=== PATIENT | female | born 1965 | race Caucasian/White ===

== ENCOUNTER → 2016-10-24 | Outpatient (CLI) | payer OTHER ==
[~2016-10-24] VITALS: Ht 175.3 cm; Wt 88.5 kg
[~2016-10-24] MED LIST: ENBREL50 MG/1 ML SQ; EXCEDRIN MIGRA1 EAC1 PO; HYDROCODONE BT1 EAC1 PO; HYDROCODONE-AP1 EAC6 PO; IBUPROFEN 200200 M1 PO; MOVANTIK12.5 MG PO; MS CONTIN15 MG PO; OXYCODONE HCL E10 MG PO; OXYCONTIN10 M1 PO; OXYCONTIN15 MG PO; PLAQUENIL200 MG PO; PREDNISONE 5 MG5 M1 PO; ZANAFLEX4 MG PO
--- NOTE | ~2016-10-24 | HPC ---
[facility] [place] [address] PAIN MANAGEMENT CONSULTATION Name: AMINAH HWANG Room #: REG DI Jeanette#: [id number] Admission: 10/24/16 Attend Phys: Altaf Lantigua DO Discharge: Date of : 63 Report #: [id number] THIS REPORT FOR: //name// CC: Adelso Lantigua The patient is a 51-year-old female typically treated for psoriatic arthritis, DJD, chronic pain syndrome requiring complex medication management. Last seen in the pain clinic 08/29/2016. The patient was continued on baseline medication, MS Contin 15 mg b.i.d. She was scheduled for foot surgery (left) the subsequent week. We continued her hydrocodone 5/325 b.i.d. for breakthrough pain. She returns to pain clinic today noting that her left foot surgery went well. They fused apparently 3 toes and may have done a tendon lengthening procedure as well. She is still nonweightbearing. She notes pain to 5/10 burning, aching sensation. She complains of right SI mediated pain which is chronic and left ankle pain secondary to surgery. She continued taking medication appropriately. PHYSICAL EXAMINATION: GENERAL: Reveals a 51-year-old female, BMI is 28.8 kilograms per meter squared. VITAL SIGNS: Show modest hypertension 139/95, pulse 107, respirations 17. NEUROLOGIC: Cranial nerves 2-12 are grossly intact. Speech is fluent. Alert and oriented to person, place and time, judged to be a reasonable historian. EXTREMITIES: Again, fiberglass cast below knee to the foot on the left side. Toes are pink and viable. She can move the toes with knee, but obviously ankle is immobilized. We reviewed the fact that opiate medications are being used to provide analgesia adequate to support activities of daily living, not attempting to achieve a specific pain score on the 0-10 Visual Analog Scale. The current opiate medications are providing sufficient analgesia to allow the patient to participate in activities of daily living. The patient is not exhibiting any aberrant behavior suggestive of drug diversion. The patient is not having any adverse reactions to medications. The patient is not suffering from daytime somnolence or mental acuity changes. The patient is managing opiate-induced constipation with appropriate zbzn-ruz-btedbjw agents and dietary considerations. The patient was counseled on concern for caution with operating a motor vehicle while using opiate medications. A physical exam was performed and the patient's functional status was evaluated. All patients with back pain were advised against the bed rest greater than 4 days and were advised to return to normal activities. Pain score assessment was noted and the treatment plan was reviewed with the patient. All current medications, both prescribed and OTC were reviewed and reconciled on the electronic medical record. Tobacco screening was accomplished and smoking cessation was advised when indicated. BMI was noted and diet/exercise modification was recommended for all patients following outside normal parameters. [address] [address] PAIN MANAGEMENT CONSULTATION Name: AMINAH HWANG Room #: REG DI Reid#: [id number] Admission: 10/24/16 Attend Phys: Altaf Lantigua DO Discharge: Date of : 63 Report #: [id number] I reviewed with the patient today their responsibilities to safeguard prescription medications, reviewed their responsibility to utilize medications only as prescribed by the physician. They are to seek and receive pain medications only from 1 physician group ( [facility]). They are to use 1 pharmacy and keep the clinic informed if they change pharmacies. Their responsibilities include making followup visits in a timely fashion and to avoid abrupt discontinuation of medication usage. Their responsibilities further include bringing their medications (bottles from the pharmacy with residual pills) to the visit for possible confirmation of pill counts and the patient understands it is their responsibility to submit to random drug screens to ensure both that the medications prescribed are present, and that no other controlled substances are present. All prescriptions provided today were generated electronically. ASSESSMENT: Chronic pain syndrome for psoriatic arthritis requiring complex medication management, stable on baseline medications. RECOMMENDATION: Continue tizanidine 4 mg t.i.d., MS Contin 15 mg b.i.d. and hydrocodone 5/325 one tablet up to 3-4 tablets a day (100 tablets for 30 days). I have taken the liberty of writing for 2 months of current medications. Her last urine drug screen on 12/31/2015 was positive for prescribed medications. We will likely get a urine drug screen next visit, should be approaching 1 year since the last UDS at that time. No aberrant behavior suggestive for drug diversion. The patient was discharged in good and stable condition. By: [id number] Altaf Lantigua DO /nt
[2016-10-24 13:30] VITALS: BP 139/95
== END ==
LOC: PAIN 06:49
DX: G89.4 Chronic pain syndrome (principal); L40.59 Other psoriatic arthropathy; I10 Essential (primary) hypertension

== ENCOUNTER → 2016-12-16 | Outpatient (CLI) | payer OTHER ==
[~2016-12-16] VITALS: Ht 175.3 cm; Wt 83.5 kg
[~2016-12-16] MED LIST changes: +HUMIRA40 MG/0.1 SQ
--- NOTE | ~2016-12-16 | HPC ---
[facility] [address] [place] [address] PAIN MANAGEMENT CONSULTATION Name: AMINAH HWANG Room #: REG DI Reid#: [id number] Admission: 12/16/16 Attend Phys: Altaf Lantigua DO Discharge: Date of : 63 Report #: [id number] THIS REPORT FOR: //name// CC: Adelso Lantigua The patient is a pleasant 51-year-old female being treated for psoriatic arthritis, DJD affecting hands, knees and ankles, chronic pain syndrome requiring complex medication management. Last seen in the pain clinic 10/24/2016. She had surgery on her left ankle in August. Returns to pain clinic today. She is still only marginal weightbearing (25%) and using a scooter type rolling device to bear most of weight of her left knee. She notes pain medications are helpful generally keeping pain around to 5 on a 0-10 visual analog scale. We reviewed the fact that opiate medications are being used to provide analgesia adequate to support activities of daily living, not attempting to achieve a specific pain score on the 0-10 Visual Analog Scale. The current opiate medications are providing sufficient analgesia to allow the patient to participate in activities of daily living. The patient is not exhibiting any aberrant behavior suggestive of drug diversion. The patient is not having any adverse reactions to medications. The patient is not suffering from daytime somnolence or mental acuity changes. The patient is managing opiate-induced constipation with appropriate nisb-zbn-cqfepnp agents and dietary considerations. The patient was counseled on concern for caution with operating a motor vehicle while using opiate medications. A physical exam was performed and the patient's functional status was evaluated. All patients with back pain were advised against the bed rest greater than 4 days and were advised to return to normal activities. Pain score assessment was noted and the treatment plan was reviewed with the patient. All current medications, both prescribed and OTC were reviewed and reconciled on the electronic medical record. Tobacco screening was accomplished and smoking cessation was advised when indicated. BMI was noted and diet/exercise modification was recommended for all patients following outside normal parameters. I reviewed with the patient today their responsibilities to safeguard prescription medications, reviewed their responsibility to utilize medications only as prescribed by the physician. They are to seek and receive pain medications only from 1 physician group ( [facility]). They are to use 1 pharmacy and keep the clinic informed if they change pharmacies. Their responsibilities include making followup visits in a timely fashion and to avoid abrupt discontinuation of medication usage. Their responsibilities further include bringing their medications (bottles from the pharmacy with residual pills) to the visit for possible confirmation of pill counts and the patient understands it is their responsibility to submit to random drug screens to [address] [address] PAIN MANAGEMENT CONSULTATION Name: AMINAH HWANG Room #: REG DI Reid#: [id number] Admission: 12/16/16 Attend Phys: Altaf Lantigua DO Discharge: Date of : 63 Report #: [id number] ensure both that the medications prescribed are present, and that no other controlled substances are present. All prescriptions provided today were generated electronically. PHYSICAL EXAMINATION: Shows a 51-year-old female, BMI is 27.2 kilograms per meter squared. Still has a walking boot on the left lower extremity and again using the scooter to limit weightbearing. Blood pressure is elevated today 162/101, pulse 81, respirations 16. Cranial nerves 2-12 are grossly intact. Pupils equal, reactive to light and accommodation. Extraocular muscles are intact. She is alert and oriented to person, place and time, judged to be a reasonable historian. Significant arthritic changes noted in both hands. ASSESSMENT: Psoriatic arthritis affecting hands, knees and feet, degenerative joint disease, chronic pain syndrome requiring complex medication management. Last urine drug screen 12/31/2015, positive for prescribed medications. RECOMMENDATION: Continue baseline medications unchanged, MS Contin 15 mg b.i.d., hydrocodone 5/325 one tablet 3-4 times a day, limit 100 tablets for 30 days, tizanidine 4 mg t.i.d. for spasm. I have taken the liberty of writing for 2 months of current medication. Follow up at that time. We will get a urine drug screen at next visit. Again, no aberrant behavior suggestive for drug diversion, simply complying with our opiate consent to treat contract, it will have been greater than a year at next visit since last UDS. By: [id number] Altaf Lantigua DO /nt
[2016-12-16 08:55] VITALS: BP 162/101
== END ==
LOC: PAIN 06:08
DX: L40.59 Other psoriatic arthropathy (principal); M19.072 Primary osteoarthritis, left ankle and foot; M19.071 Primary osteoarthritis, right ankle and foot; M17.0 Bilateral primary osteoarthritis of knee; M19.042 Primary osteoarthritis, left hand; M19.041 Primary osteoarthritis, right hand; G89.29 Other chronic pain

== ENCOUNTER → 2017-02-10 | Outpatient (CLI) | payer OTHER ==
[~2017-02-10] VITALS: Ht 175.3 cm; Wt 85.5 kg
[~2017-02-10] MED LIST changes: +LEFLUNOMIDE20 MG PO
--- NOTE | ~2017-02-10 | HPC ---
[facility] [address] [place] [address] PAIN MANAGEMENT CONSULTATION Name: AMINAH HWANG Room #: REG DI Jeanette#: [id number] Admission: 02/10/17 Attend Phys: Sal Silverman MD Discharge: Date of : 63 Report #: [id number] THIS REPORT FOR: //name// CC: Sal Tran DO DATE OF SERVICE: 02/10/2017 CHIEF COMPLAINT: Right SI joint pain, rib pain and ankle fusion pain. FOLLOWUP HISTORY: The patient is a 51-year-old female who has been followed in the pain clinic because of psoriatic arthritis, DJD and chronic pain requiring complex medication management. The patient has returned to the pain clinic for evaluation today. She states that she is going on vacation. She is walking and weightbearing on her foot. She states that her pain is a 5/10. She would like to have her medications renewed. PHYSICAL EXAMINATION: Blood pressure 154/93, pulse , respiratory rate 16, room air saturation 97%, height 5 feet 9 inches, weight is pounds, and BMI is 27.8. The patient has pain and discomfort involving the ankle and foot, which was treated in August 2016, with surgery. She also has some pain and discomfort affecting her hands, knees, and ankles. There are changes in her upper extremities and hands consistent with arthritis. RECOMMENDATIONS: We discussed treatment options with the patient. Risks and benefits of opioid therapy were again discussed. The patient will provide a sample for study. A buccal drug screen was performed. A script for MS Contin 10 mg 1 p.o. b.i.d., total of 60 tablets and hydrocodone 5/325, 100 tablets were written. The patient will follow up in the near future as needed. She will call us if she has any problems with her medications. We would like to thank you for letting us participate in her care. We hope she continues to improve. By: [id number] Sal Silverman MD /nt
[2017-02-10 09:17] VITALS: BP 154/93
== END ==
LOC: PAIN 07:27
DX: M53.3 Sacrococcygeal disorders, not elsewhere classified (principal); R07.81 Pleurodynia; M25.572 Pain in left ankle and joints of left foot; Z88.0 Allergy status to penicillin; Z88.1 Allergy status to other antibiotic agents; Z79.899 Other long term (current) drug therapy

== ENCOUNTER → 2017-03-16 | Outpatient (CLI) | payer OTHER ==
[~2017-03-16] VITALS: Ht 175.3 cm; Wt 87.6 kg
--- NOTE | ~2017-03-16 | HPC ---
[facility] [address] [place] [address] PAIN MANAGEMENT CONSULTATION Name: AMINAH HWANG Room #: REG DI Reid#: [id number] Admission: 03/16/17 Attend Phys: Altaf Lantigua DO Discharge: Date of : 63 Report #: [id number] THIS REPORT FOR: //name// CC: Adelso Lantigua DATE OF SERVICE: 03/16/2017 SUBJECTIVE: The patient is a very pleasant 51-year-old female with significant psoriatic arthritis, degenerative joint disease affecting hands, knees and ankles; chronic pain requiring complex medication management. Typically treated by myself, maintained with MS Contin 15 mg b.i.d., hydrocodone 5/325 one tablet 3-4 times a day, limit 100 tablets for 30 days. The patient is an opiate consent to treat contract patient. She had had left ankle fusion back in August and spent a long time with partial weightbearing. She was seen by Dr. Drake Silverman at last visit. Per my request, he did get a buccal swab at that time. Buccal swab was positive for prescribed medication including morphine and hydrocodone and no others. She returns to pain clinic today appearing her usual pleasant self. A 51-year-old female, BMI is 28.5 kilograms per meter squared. Today, she is fully weightbearing on that left ankle, fusion has taken, she has very little range of motion here. Unfortunately, with gait changes she has significant pain in that right low back. She does have bands from physical therapy at home to do abduction and core strengthening; she feels that this does exacerbate that right low back pain. She has point tenderness over the SI joint. She has had SI joint injections in the past with some efficacy. Rates her pain as 6 on the Visual Analog Scale. Again, primarily right low back with some pain in the left foot, right ribs and hip. Describes sharp, aching pain exacerbated with standing and walking. We reviewed the fact that opiate medications are being used to provide analgesia adequate to support activities of daily living, not attempting to achieve a specific pain score on the 0-10 Visual Analog Scale. The current opiate medications are providing sufficient analgesia to allow the patient to participate in activities of daily living. The patient is not exhibiting any aberrant behavior suggestive of drug diversion. The patient is not having any adverse reactions to medications. The patient is not suffering from daytime somnolence or mental acuity changes. The patient is managing opiate-induced constipation with appropriate oayt-boq-qklftme agents and dietary considerations. The patient was counseled on concern for caution with operating a motor vehicle while using opiate medications. A physical exam was performed and the patient's functional status was evaluated. [address] [address] PAIN MANAGEMENT CONSULTATION Name: AMINAH HWANG Room #: REG DI Reid#: [id number] Admission: 03/16/17 Attend Phys: Altaf Lantigua DO Discharge: Date of : 63 Report #: [id number] All patients with back pain were advised against the bed rest greater than 4 days and were advised to return to normal activities. Pain score assessment was noted and the treatment plan was reviewed with the patient. All current medications, both prescribed and OTC were reviewed and reconciled on the electronic medical record. Tobacco screening was accomplished and smoking cessation was advised when indicated. BMI was noted and diet/exercise modification was recommended for all patients following outside normal parameters. I reviewed with the patient today their responsibilities to safeguard prescription medications, reviewed their responsibility to utilize medications only as prescribed by the physician. They are to seek and receive pain medications only from 1 physician group ( [facility]). They are to use 1 pharmacy and keep the clinic informed if they change pharmacies. Their responsibilities include making followup visits in a timely fashion and to avoid abrupt discontinuation of medication usage. Their responsibilities further include bringing their medications (bottles from the pharmacy with residual pills) to the visit for possible confirmation of pill counts and the patient understands it is their responsibility to submit to random drug screens to ensure both that the medications prescribed are present, and that no other controlled substances are present. All prescriptions provided today were generated electronically. PHYSICAL EXAMINATION: Shows a 51-year-old female, BMI is 28.5 kilograms per meter squared. Obvious arthritic changes in her hands. Blood pressure 146/96, pulse 96, respirations 14. Rises from chair using armrests, antalgic gait. Left ankle fused. Little kyphoscoliosis, diffuse tenderness across the low back. ASSESSMENT: Psoriatic arthritis affecting knees, ankles and hands; chronic pain syndrome requiring complex medication management, stable on baseline medication. Buccal swab last visit positive for prescribed medication. RECOMMENDATIONS: Continue MS Contin 15 mg b.i.d., hydrocodone 5/325, limit 100 tablets for 30 days. I have taken the liberty of writing for 2 months of current medication. Follow up at that time, earlier if needed. Incidentally will continue tizanidine 4 mg t.i.d. as needed for spasm. <ELECTRONICALLY SIGNED> By: Altaf Lantigua DO 03/17/17 1225 1158 16 Altaf Lantigua DO /nt
[2017-03-16 10:22] VITALS: BP 146/96
== END ==
LOC: PAIN 06:54
DX: M54.16 Radiculopathy, lumbar region (principal)

== ENCOUNTER → 2017-05-08 | Outpatient (CLI) | payer OTHER ==
[~2017-05-08] VITALS: Ht 175.3 cm; Wt 85.8 kg
--- NOTE | ~2017-05-08 | HPC ---
[facility] [address] [place] [address] PAIN MANAGEMENT CONSULTATION Name: AMINAH HWANG Room #: REG DI Camargo.#: [id number] Admission: 05/08/17 Attend Phys: Altaf Lantigua, DO Discharge: Date of : 63 Report #: [id number] THIS REPORT FOR: //name// CC: Adelso Lantigua The patient is a very pleasant 51-year-old female, well known to pain clinic, typically treated for psoriatic arthritis, DJD affecting hands, knees, and ankles, requiring high risk complex medication management. She has been typically treated with MS Contin 15 mg b.i.d., hydrocodone 5/325 one tablet 3-4 times a day, limit 100 tablets for 30 days. Last buccal drug swab 02/10/2017, was positive for prescribed medications. She returns to pain clinic today noting medications are providing sufficient analgesia to participate in activities of daily living. Today, she notes pain is primarily hips with some rib pain. She is status post left ankle fusion in August, symptoms seemed to be getting better. Rates pain a 6 on VAS. PHYSICAL EXAMINATION: Shows a pleasant 51-year-old female, BMI is 27.9 kg/m2. Vital signs show hypertension, blood pressure 164/115, pulse 89, and respirations 16. Reviewing her chart, blood pressure has typically been elevated, but more in the 150/90 range. We suggest she follow up with a major general physician regarding current hypertension, she does not take any antihypertensive medications. She does take ibuprofen; however, 600 mg up to 3 times a day, which can be exacerbating blood pressure issues. Also uses disease modifying agents including leflunomide, Humira, and prednisone. Does have significant arthritic changes with deformities in her hands and knees. Rises from chair using armrest. Gait is modestly antalgic. Lumbar flexion is limited. We reviewed the fact that opiate medications are being used to provide analgesia adequate to support activities of daily living, not attempting to achieve a specific pain score on the 0-10 Visual Analog Scale. The current opiate medications are providing sufficient analgesia to allow the patient to participate in activities of daily living. The patient is not exhibiting any aberrant behavior suggestive of drug diversion. The patient is not having any adverse reactions to medications. The patient is not suffering from daytime somnolence or mental acuity changes. The patient is managing opiate-induced constipation with appropriate fxsm-cms-bxhzchk agents and dietary considerations. The patient was counseled on concern for caution with operating a motor vehicle while using opiate medications. A physical exam was performed and the patient's functional status was evaluated. All patients with back pain were advised against the bed rest greater than 4 days and were advised to return to normal activities[place] [address] PAIN MANAGEMENT CONSULTATION Name: AMINAH HWANG Room #: REG DI Reid#: [id number] Admission: 05/08/17 Attend Phys: Altaf Lantigua DO Discharge: Date of : 63 Report #: [id number] noted and the treatment plan was reviewed with the patient. All current medications, both prescribed and OTC were reviewed and reconciled on the electronic medical record. Tobacco screening was accomplished and smoking cessation was advised when indicated. BMI was noted and diet/exercise modification was recommended for all patients following outside normal parameters. I reviewed with the patient today their responsibilities to safeguard prescription medications, reviewed their responsibility to utilize medications only as prescribed by the physician. They are to seek and receive pain medications only from 1 physician group ( [facility]). They are to use 1 pharmacy and keep the clinic informed if they change pharmacies. Their responsibilities include making followup visits in a timely fashion and to avoid abrupt discontinuation of medication usage. Their responsibilities further include bringing their medications (bottles from the pharmacy with residual pills) to the visit for possible confirmation of pill counts and the patient understands it is their responsibility to submit to random drug screens to ensure both that the medications prescribed are present, and that no other controlled substances are present. All prescriptions provided today were generated electronically. ASSESSMENT: Psoriatic arthritis affecting hands, hips, knees, ankles, requiring high risk complex medication management, stable on baseline medication. RECOMMENDATION: Continue MS Contin 15 mg b.i.d., hydrocodone 5/325 one tablet 3-4 times a day, limit 100 tablets for 30 days. I have taken the liberty of writing for 2 months of current medication. Continue tizanidine 4 mg t.i.d. Suggest she follow up with her major general physician regarding hypertension and perhaps hold off on ibuprofen use presently. <ELECTRONICALLY SIGNED> By: Altaf Lantigua DO 05/10/17 0802 1026 1226 Altaf Lantigua DO /nt
[2017-05-08 09:49] VITALS: BP 164/115
== END ==
LOC: PAIN 06:59
DX: L40.59 Other psoriatic arthropathy (principal)

== ENCOUNTER → 2017-07-06 | Outpatient (CLI) | payer OTHER ==
[~2017-07-06] VITALS: Ht 175.3 cm; Wt 84.9 kg
--- NOTE | ~2017-07-06 | HPC ---
[facility] [address] [place] [address] PAIN MANAGEMENT CONSULTATION Name: AMINAH HWANG Room #: REG DI Reid#: [id number] Admission: 07/06/17 Attend Phys: Altaf Lantigua DO Discharge: Date of : 63 Report #: [id number] THIS REPORT FOR: //name// CC: Adelso Lantigua The patient is a 51-year-old female typically treated for psoriatic arthritis affecting hands, ankles and knees. She requires high risk complex medication management. Last seen in the pain clinic 05/08/2017, continued on hydrocodone 5/325 one tablet 3 to 4 times a day, MS Contin 15 mg b.i.d. and tizanidine 4 mg for spasm. Last urine drug screen on 02/10/2017 was positive for prescribed medications. The patient was having a little hypertension. Last visit, we told her to stop the anti-inflammatory medications (ibuprofen) and follow up with her GP. She returns to pain clinic today noting medications are generally providing sufficient analgesia to participate in activities of daily living, rates her pain 6 on a VAS. Not having problems from daytime somnolence, mental acuity changes or constipation. Pain is primarily low back, left foot, right ribs and right hip. Pain is exacerbated with standing, walking and some relief with medication. We reviewed the fact that opiate medications are being used to provide analgesia adequate to support activities of daily living, not attempting to achieve a specific pain score on the 0-10 Visual Analog Scale. The current opiate medications are providing sufficient analgesia to allow the patient to participate in activities of daily living. The patient is not exhibiting any aberrant behavior suggestive of drug diversion. The patient is not having any adverse reactions to medications. The patient is not suffering from daytime somnolence or mental acuity changes. The patient is managing opiate-induced constipation with appropriate yxbx-ktd-yxfcptb agents and dietary considerations. The patient was counseled on concern for caution with operating a motor vehicle while using opiate medications. A physical exam was performed and the patient's functional status was evaluated. All patients with back pain were advised against the bed rest greater than 4 days and were advised to return to normal activities. Pain score assessment was noted and the treatment plan was reviewed with the patient. All current medications, both prescribed and OTC were reviewed and reconciled on the electronic medical record. Tobacco screening was accomplished and smoking cessation was advised when indicated. BMI was noted and diet/exercise modification was recommended for all patients following outside normal parameters. I reviewed with the patient today their responsibilities to safeguard prescription medications, reviewed their responsibility to utilize medications only as prescribed by the physician. They are to seek and receive pain [address] [address] PAIN MANAGEMENT CONSULTATION Name: AMINAH HWANG Room #: REG DI Reid#: [id number] Admission: 07/06/17 Attend Phys: Altaf Lantigua DO Discharge: Date of : 63 Report #: [id number] medications only from 1 physician group ( [facility]). They are to use 1 pharmacy and keep the clinic informed if they change pharmacies. Their responsibilities include making followup visits in a timely fashion and to avoid abrupt discontinuation of medication usage. Their responsibilities further include bringing their medications (bottles from the pharmacy with residual pills) to the visit for possible confirmation of pill counts and the patient understands it is their responsibility to submit to random drug screens to ensure both that the medications prescribed are present, and that no other controlled substances are present. All prescriptions provided today were generated electronically. PHYSICAL EXAMINATION: Shows pleasant 51-year-old female, BMI is 27.6 kilograms per meter squared. Vital signs are stable, blood pressure 147/88, pulse 70 and respiration 16 today. Does have residual of surgery of both hands with joint replacements, psoriatic arthritis in back and legs and antalgic gait. Medication list was reconciled includes leflunomide and Humira. She is using low dose ibuprofen presently and prednisone 5 mg. ASSESSMENT: Chronic pain syndrome secondary to psoriatic arthritis affecting hands, knees and ankles requiring high risk complex medication management, stable on baseline medication. RECOMMENDATION: Renew MS Contin 15 mg b.i.d., hydrocodone 5/325 1 or 2 tablets for 30 days, tizanidine 4 mg t.i.d. I have taken the liberty of writing for 2 months of current medication. Follow up at that time or earlier if needed. <ELECTRONICALLY SIGNED> By: Altaf Lantigua DO 07/07/17 0943 [id number] [id number] Altaf Lantigua DO /nt
[2017-07-06 10:48] VITALS: BP 147/88
== END ==
LOC: PAIN 06:17
DX: G89.4 Chronic pain syndrome (principal); L40.52 Psoriatic arthritis mutilans; Z79.899 Other long term (current) drug therapy

== ENCOUNTER → 2017-09-04 | Outpatient (CLI) | payer OTHER ==
[~2017-09-04] VITALS: Ht 175.3 cm; Wt 86.2 kg
[~2017-09-04] MED LIST changes: +ASPIR 8181 MG PO; +CARDIZEM CD120 MG PO; +HUMIRA40 MG/0.1 SUBQ
--- NOTE | ~2017-09-04 | HPC ---
[facility] [place] [address] PAIN MANAGEMENT CONSULTATION Name: AMINAH HWANG Room #: REG [facility]aze Reid#: [id number] Admission: 09/04/17 Attend Phys: Altaf Lantigua DO Discharge: Date of : 63 Report #: [id number] THIS REPORT FOR: //name// CC: Adelso Lantigua DATE OF SERVICE: 09/04/2017 The patient is a very pleasant 51-year-old female typically treated for psoriatic arthritis affecting hands, ankles and knees requiring high risk complex medication management. Last seen in the pain clinic 07/06/2017, continued on baseline medications including MS Contin 15 mg b.i.d., hydrocodone 5/325 one to two tablets 3 times a day, limit 100 tablets for 30 days and tizanidine 4 mg t.i.d. for spasm. Returns to pain clinic today noting medications are generally helping with baseline pain. Rates her pain is 6 on VAS. Specifically, notes pain impact score a 53/70 without medications, 22/70 with medications. Subjective pain score 6 on VAS. History of psoriatic arthritis "everywhere" primarily affecting hands, knees and ankles. BMI is 28 kilograms per meter squared. Vital signs show modest hypertension 167/104, pulse 76, respirations are 14, oxygen saturation 90%. She has not fallen in the last 3 months. She does not require mobility assistance device though she did use a foot wheelie postop her left ankle surgery. Her last opiate consent to treat contract was signed several years ago. We reviewed the contract today, was signed 09/04/2017. Opiate risk assessment tool shows the patient at low risk category. PHYSICAL EXAMINATION: Again shows well-healed surgical scars in her hands compatible with multiple orthopedic surgeries for psoriatic arthritic joints. Rises from chair using armrest, modestly antalgic gait. Alert and oriented to person, place and time, judged to be a reasonable historian. Lumbar flexion is limited. Gait is modestly antalgic. We reviewed the fact that opiate medications are being used to provide analgesia adequate to support activities of daily living, not attempting to achieve a specific pain score on the 0-10 Visual Analog Scale. The current opiate medications are providing sufficient analgesia to allow the patient to participate in activities of daily living. The patient is not exhibiting any aberrant behavior suggestive of drug diversion. The patient is not having any adverse reactions to medications. The patient is not suffering from daytime somnolence or mental acuity changes. The patient is managing opiate-induced constipation with appropriate tlzs-esy-tpbhkmq agents and dietary considerations. The patient was counseled on concern for caution with operating a motor vehicle while using opiate medications. A physical exam was performed and the patient's functional status was evaluated. [address] [address] PAIN MANAGEMENT CONSULTATION Name: AMINAH HWANG Room #: REG DI Reid#: [id number] Admission: 09/04/17 Attend Phys: Altaf Lantigua DO Discharge: Date of : 63 Report #: [id number] All patients with back pain were advised against the bed rest greater than 4 days and were advised to return to normal activities. Pain score assessment was noted and the treatment plan was reviewed with the patient. All current medications, both prescribed and OTC were reviewed and reconciled on the electronic medical record. Tobacco screening was accomplished and smoking cessation was advised when indicated. BMI was noted and diet/exercise modification was recommended for all patients following outside normal parameters. I reviewed with the patient today their responsibilities to safeguard prescription medications, reviewed their responsibility to utilize medications only as prescribed by the physician. They are to seek and receive pain medications only from 1 physician group ( [facility]). They are to use 1 pharmacy and keep the clinic informed if they change pharmacies. Their responsibilities include making followup visits in a timely fashion and to avoid abrupt discontinuation of medication usage. Their responsibilities further include bringing their medications (bottles from the pharmacy with residual pills) to the visit for possible confirmation of pill counts and the patient understands it is their responsibility to submit to random drug screens to ensure both that the medications prescribed are present, and that no other controlled substances are present. All prescriptions provided today were generated electronically. Long discussion with the patient today about CBD oil. The patient would like to try and start using less of her hydrocodone p.r.n. I talked about risks and benefits of CBD oil. I talked about the fact that it is noncontrolled substance; however, there are endogenous CBD receptors in the body. Pointed out that using CBD oil should still test negative for THC. Using CBD oil does not condone use of marijuana/THC products. ASSESSMENT: Psoriatic arthritis affecting multiple joints, primarily hands, ankles and knees, chronic pain syndrome requiring high risk complex medication management. RECOMMENDATION: Long discussion with the patient today about therapeutic options. The patient was seen from 14:05-14:30, greater than 50% of this 25+ minute visit was spent reviewing therapeutic options and counseling the patient. We elected to continue current medication including MS Contin 15 mg b.i.d., hydrocodone 5/325, limit 100 tablets for 30 days, tizanidine 4 mg t.i.d. We did renew the opiate consent to treat contract today. I did enable the patient to trial a CBD products. She preferred not to buy them over online and stated she preferred to shop at store apparently in [place], [place] that is selling CBD products. Follow up in 2 months. I told the patient will likely get a buccal drug swab at that time. It should be negative for THC, positive for hydrocodone and morphine. [facility] [address] [place] [address] PAIN MANAGEMENT CONSULTATION Name: AMINAH HWANG Room #: REG [facility] Raman.#: [id number] Admission: 09/04/17 Attend Phys: Altaf Lantigua DO Discharge: Date of : 63 Report #: [id number] The patient was discharged in good and stable condition after prolonged visit. <ELECTRONICALLY SIGNED> By: Altaf Lantigua DO 09/06/17 0724 1544 1919 Altaf Lantigua DO /nt
[2017-09-04 13:47] VITALS: BP 167/104
== END ==
LOC: PAIN 07:39
DX: L40.50 Arthropathic psoriasis, unspecified (principal); Z79.899 Other long term (current) drug therapy

== ENCOUNTER → 2017-10-30 | Outpatient (CLI) | payer OTHER ==
[~2017-10-30] VITALS: Ht 175.3 cm; Wt 86.6 kg
[~2017-10-30] MED LIST changes: -ASPIR 8181 MG PO; -CARDIZEM CD120 MG PO
--- NOTE | ~2017-10-30 | HPC ---
[facility] [place] [address] [place] [address] [place] [address] PAIN MANAGEMENT CONSULTATION Name: AMINAH HWANG Room #: REG DI Reid#: [id number] Admission: 10/30/17 Attend Phys: Altaf Lantigua DO Discharge: Date of : 63 Report #: [id number] THIS REPORT FOR: //name// CC: Adelso Lantigua DATE OF SERVICE: 10/30/2017 The patient is a very pleasant 52-year-old female, long treated for psoriatic arthritis affecting hands, ankles, and knees. Last seen in the Pain Clinic on 07/04/2018, continued on MS Contin 15 mg b.i.d.; hydrocodone 5/325 one tablet 3-4 times a day, limit her tablet to 30 days; tizanidine 4 mg t.i.d. for spasm. She returns to the Pain Clinic today noting medications are generally helpful to participate in activities of daily living. She is status post carpometacarpal joint replacements on all 5 right hand knuckles, status post bilateral total knee arthroplasties. She has had left ankle fusion. She notes that the total joint arthroplasties have been efficacious. The left ankle fusion continues to be problematic. Ongoing axial pain, hips, left ankle and back. We reviewed the fact that opiate medications are being used to provide analgesia adequate to support activities of daily living, not attempting to achieve a specific pain score on the 0-10 Visual Analog Scale. The current opiate medications are providing sufficient analgesia to allow the patient to participate in activities of daily living. The patient is not exhibiting any aberrant behavior suggestive of drug diversion. The patient is not having any adverse reactions to medications. The patient is not suffering from daytime somnolence or mental acuity changes. The patient is managing opiate-induced constipation with appropriate vetu-iwx-jgzcnfh agents and dietary considerations. The patient was counseled on concern for caution with operating a motor vehicle while using opiate medications. A physical exam was performed and the patient's functional status was evaluated. All patients with back pain were advised against the bed rest greater than 4 days and were advised to return to normal activities. Pain score assessment was noted and the treatment plan was reviewed with the patient. All current medications, both prescribed and OTC were reviewed and reconciled on the electronic medical record. Tobacco screening was accomplished and smoking cessation was advised when indicated. BMI was noted and diet/exercise modification was recommended for all patients following outside normal parameters. I reviewed with the patient today their responsibilities to safeguard prescription medications, reviewed their responsibility to utilize medications only as prescribed by the physician. They are to seek and receive pain medications only from 1 physician group ( [facility]). They are to use [address] [place] [address] PAIN MANAGEMENT CONSULTATION Name: AMINAH HWANG Room #: REG DI Reid#: [id number] Admission: 10/30/17 Attend Phys: Altaf Lantigua DO Discharge: Date of : 63 Report #: [id number] pharmacy and keep the clinic informed if they change pharmacies. Their responsibilities include making followup visits in a timely fashion and to avoid abrupt discontinuation of medication usage. Their responsibilities further include bringing their medications (bottles from the pharmacy with residual pills) to the visit for possible confirmation of pill counts and the patient understands it is their responsibility to submit to random drug screens to ensure both that the medications prescribed are present, and that no other controlled substances are present. All prescriptions provided today were generated electronically. At last visit, we talked about CBD oil. The patient has not had a chance to trial this. She is still very desirous about trialing CBD oil. In total, we will postpone a buccal drug swab today. I would like to get a buccal drug swab when I see her back in 2 months if she is using CBD oil. Somewhat as an internal test, it should be positive for morphine and hydrocodone. It should be negative for delta 9 THC. We will check the specificity to see if there is any overlap with CBD oils. Again, on physical exam, she is alert and oriented to person, place and time, judged to be a reasonable historian. Cervical range of motion is modestly limited. Right hand has some limitation in range of motion, obvious sequelae status post right carpometacarpal joint replacements. Rises from chair using armrest, modestly antalgic gait, diffuse tenderness across the low back. Alert and oriented to person, place and time, judged to be a reasonable historian. Vital signs are stable as noted in the EMR. Subjective pain score is 6 on a VAS. Does not use tobacco products, has not fallen in the last 3 months. Discharged in good and stable condition. Follow up in 2 months. Again, buccal drug swab at that time. <ELECTRONICALLY SIGNED> By: Altaf Lantigua DO 11/01/17 0753 1501 Altaf Lantigua DO /nt
[2017-10-30 14:28] VITALS: BP 165/96
== END ==
LOC: PAIN 06:21
DX: L40.59 Other psoriatic arthropathy (principal); Z96.653 Presence of artificial knee joint, bilateral; M25.472 Effusion, left ankle

== ENCOUNTER → 2018-01-01 | Outpatient (CLI) | payer OTHER ==
[~2018-01-01] VITALS: Ht 175.3 cm; Wt 87.7 kg
--- NOTE | ~2018-01-01 | HPC ---
[facility] [place] [address] PAIN MANAGEMENT CONSULTATION Name: AMINAH HWANG Room #: REG DI Reid#: [id number] Admission: 01/01/18 Attend Phys: Altaf Lantigua DO Discharge: Date of : 63 Report #: [id number] THIS REPORT FOR: //name// CC: Adelso Lantigua DATE OF SERVICE: 01/01/2018 The patient is a delightful 52-year-old female, long treated for symptomatic psoriatic arthritis affecting her hands, ankles and knees, axial back pain requiring complex medication management. Last seen in pain clinic 10/30/2017. We continued the patient on MS Contin 15 mg q. 8 hours and hydrocodone 5/325, limit #100 tablets for 30 days, averaging about 60 mg morphine equivalents a day. She uses tizanidine as needed for spasm. She is status post multiple metacarpocarpal arthroplasties, status post bilateral total knee arthroplasties and the left ankle fusion. Last visit, we talked about CBD oil as a possible therapeutic option to help with pain. Today, she tells me that she did start using CBD oil from [facility] in [place]. She has used it for about a month. She notes no euphoria nor dysphoria. She does feel, however, that she has had a little better pain control and in fact, has used less of her hydrocodone. Today, she tells me her pain score is 5 on a VAS, primarily right low back and hips. No problems with daytime somnolence, mental acuity changes or constipation. Pain is exacerbated with standing, walking and weather changes. Overall, feels that the medications are helpful. She feels the CBD oil is helpful as well. Today at my request since our prior discussion, I had encouraged her to go ahead and try the CBD oil. We elected to get a buccal drug swab today. I believe the patient is not using any marijuana-containing products, at least knowingly. Ostensibly, the buccal swab should be negative for THC. Certainly, the CBD oil sold in [place] should contain no THC. We elected to continue the scheduled 2 narcotic unchanged. We reviewed the fact that opiate medications are being used to provide analgesia adequate to support activities of daily living, not attempting to achieve a specific pain score on the 0-10 Visual Analog Scale. The current opiate medications are providing sufficient analgesia to allow the patient to participate in activities of daily living. The patient is not exhibiting any aberrant behavior suggestive of drug diversion. The patient is not having any [address] [address] PAIN MANAGEMENT CONSULTATION Name: AMINAH HWANG Room #: REG [facility]..#: [id number] Admission: 01/01/18 Attend Phys: Altaf Lantigua DO Discharge: Date of : 63 Report #: [id number] adverse reactions to medications. The patient is not suffering from daytime somnolence or mental acuity changes. The patient is managing opiate-induced constipation with appropriate qgns-rch-fznkgvr agents and dietary considerations. The patient was counseled on concern for caution with operating a motor vehicle while using opiate medications. A physical exam was performed and the patient's functional status was evaluated. All patients with back pain were advised against the bed rest greater than 4 days and were advised to return to normal activities. Pain score assessment was noted and the treatment plan was reviewed with the patient. All current medications, both prescribed and OTC were reviewed and reconciled on the electronic medical record. Tobacco screening was accomplished and smoking cessation was advised when indicated. BMI was noted and diet/exercise modification was recommended for all patients following outside normal parameters. I reviewed with the patient today their responsibilities to safeguard prescription medications, reviewed their responsibility to utilize medications only as prescribed by the physician. They are to seek and receive pain medications only from 1 physician group ( [facility]). They are to use 1 pharmacy and keep the clinic informed if they change pharmacies. Their responsibilities include making followup visits in a timely fashion and to avoid abrupt discontinuation of medication usage. Their responsibilities further include bringing their medications (bottles from the pharmacy with residual pills) to the visit for possible confirmation of pill counts and the patient understands it is their responsibility to submit to random drug screens to ensure both that the medications prescribed are present, and that no other controlled substances are present. All prescriptions provided today were generated electronically. I will ask the patient to follow up with Dr. Drake Silverman, she has seen him in my absence and I think he is a good compassionate physician to continue to manage her modest opiate requirement. <ELECTRONICALLY SIGNED> By: Altaf Lantigua DO 01/03/18 0800 [id number] 0153 Altaf Lantigua DO /nt
[2018-01-01 13:33] VITALS: BP 159/96
== END ==
LOC: PAIN 07:38
DX: M54.5 Low back pain (principal); F11.90 Opioid use, unspecified, uncomplicated; Z79.899 Other long term (current) drug therapy

== ENCOUNTER → 2018-04-30 | Outpatient (CLI) | payer OTHER ==
[~2018-04-30] VITALS: Ht 175.3 cm; Wt 86.5 kg
[~2018-04-30] MED LIST changes: +ASPIR 8181 MG PO; +CARDIZEM CD120 MG PO
[2018-04-30 10:53] VITALS: BP 156/97
== END ==
LOC: PAIN 07:13
DX: M54.5 Low back pain (principal); R07.81 Pleurodynia; M25.551 Pain in right hip; G89.29 Other chronic pain; M79.672 Pain in left foot; M79.671 Pain in right foot; M25.572 Pain in left ankle and joints of left foot; M25.571 Pain in right ankle and joints of right foot; Z79.891 Long term (current) use of opiate analgesic; Z79.899 Other long term (current) drug therapy

== ENCOUNTER → 2018-06-29 | Outpatient (CLI) | payer OTHER ==
[~2018-06-29] VITALS: Ht 175.3 cm; Wt 86.0 kg
[2018-06-29 10:31] VITALS: BP 152/99
== END ==
LOC: PAIN 10:15
DX: M54.5 Low back pain (principal); L40.50 Arthropathic psoriasis, unspecified; M25.551 Pain in right hip; M25.571 Pain in right ankle and joints of right foot; R07.81 Pleurodynia; M25.572 Pain in left ankle and joints of left foot; Z79.899 Other long term (current) drug therapy

== ENCOUNTER → 2018-08-29 | Outpatient (CLI) | payer OTHER ==
[~2018-08-29] VITALS: Ht 175.3 cm; Wt 87.8 kg
[2018-08-29 10:56] VITALS: BP 144/81
--- NOTE | 2018-08-29 11:12 | NUR ---
Pain Clinic Assessment: 1. History of Osteoarthritis: PSORIATIC EVERYWHERE History of Rheumatoid Arthritis: Not Applicable 2. Height: 5 ft. 9 in. 175.3 cm. Weight: 193.6 lb. oz. 87.816 kg. Patient's BMI: 28.6 3. Vital Signs: BP: 144/81 Pulse: 83 Resp: 16 Temp: 02 Sat: 100 ECG Mon: 4. Pain Intensity: 7 5. Fall Risk: Dizziness: N Needs help standing or walking: N Fallen in the last 3 months: N Fall risk comments: 6. Patient on Blood Thinner: None 7. History of Hypertension: N 8. Opioid Therapy greater than 6 weeks: Y Opiate Contract Signed: 09/04/17 9. Risk Assessment Tool Provided: LOW RISK 10. Functional Assessment Tool: 53/70 WITHOUT MEDS 11. Recreational Drug Use: Never Drug Type: Tobacco Use: Never Smoker Tobacco Type: Amount or Packs/day: How Many Years: Alcohol Use: Yes Frequency: Quant:
--- NOTE | 2018-08-31 16:49 | HPC ---
[facility] [address] [place] [address] PAIN MANAGEMENT CONSULTATION Name: JAIDENMILA Room #: REG DI Camargo.#: [id number] Admission: 08/29/18 Attend Phys: Sal Silverman MD Discharge: Date of : 63 Report #: [id number] THIS REPORT FOR: //name// CC: Sal Tran DATE OF SERVICE: 08/29/2018 CHIEF COMPLAINT: Here for medication renewal, things are going pretty good. HISTORY OF PRESENT ILLNESS: The patient is a 52-year-old female who has been followed in the Pain Clinic. As you recall, she has a history of psoriatic arthritis. She has had dramatic affects to her hands as a result of this disease. She has problems with her ankles, feet, and back. She is being treated with a complex medical regimen of opioid medications. She has pain and discomfort in her left ankle. Now, the pain in her right ankle has superseded in her left ankle. Feels that she has some tendinitis involving the ankle. Notes that the pain is worse when she is sitting. Sometimes wakes her from sleep. Feels that her medications enable her to stay active. She has had total knee replacements. She has had a fusion of her left ankle. Has tried CBD oil. Feels that her medications are helpful. She is able to think clearly. Not having any problems with medications and desires to have them renewed. ALLERGIES: PENICILLIN. CURRENT MEDICATIONS: Diltiazem 120 mg daily, aspirin 81 mg, Zanaflex 4 mg, morphine sulfate 15 mg, hydrocodone 5/325 one p.o. q.4-6 hours p.r.n., Humira 40 mg/0.8 mg injection subq, Excedrin for migraines, Advil 220 mg t.i.d., prednisone 5 mg daily PAIN CLINIC ASSESSMENT/PQRS: 1. History of osteoarthritis/psoriatic arthritis. The patient is being treated for rheumatoid arthritis. 2. Height 5 feet 9 inches, weight 193 pounds, BMI is 28.6. 3. Vital signs: Blood pressure 144/80, pulse 81, respiratory rate 16, room air saturation is 100%. 4. Pain intensity 01/30. 5. Fall risk. The patient has not fallen in the last 3 months. 6. Blood thinner. The patient is not on blood thinning medication. 7. Hypertension. The patient is not being treated for hypertension. 8. Opioids greater than 6 weeks. The patient [facility]. 9. Risk assessment tool, low for opioid use. 10. Functional assessment 53/70 without medication. 11. Recreational drug use. The patient denies use of recreational drugs. 12. Tobacco: The patient denies use of tobacco. [address] [address] PAIN MANAGEMENT CONSULTATION Name: MILA HWANG ANITA Room #: REG CLI M.R.#: [id number] Admission: 08/29/18 Attend Phys: Sal Silverman MD Discharge: Date of : 63 Report #: [id number] 13. Alcohol: The patient occasionally drinks alcoholic beverages. PHYSICAL EXAMINATION: GENERAL: The patient is a well-developed, well-nourished white female. Appears her stated age. She is alert and oriented x 3. Her affect is appropriate. Speech is fluent. HEENT: Normocephalic, atraumatic. Extraocular eye muscles intact. Sclera is nonicteric. Mucous membranes are moist. NECK: Without adenopathy or JVD. Upper extremity muscle strength is judged to be 4+/5 for the major muscle groups. The patient has findings consistent with severe arthritic changes in her hands. HEART: Regular rate and rhythm. ABDOMEN: Nontender. Bowel sounds present. MUSCULOSKELETAL: The patient is without significant scoliosis, kyphosis or lordosis. The patient has some pain and discomfort in the left ankle, has had a fusion in this area. Continues to have some pain in her knees. Has pain and discomfort in the right ankle, which seems to have supersede in the left ankle. IMPRESSION: 1. Chronic arthritic changes, status post arthritis symptomatology over the last 23 years. 2. History of rheumatoid arthritis. 3. History of anemia. 4. History of stomach problems. 5. Chronic steroid use. RECOMMENDATIONS: We discussed treatment options with the patient. Risks and benefits of continued use of opioid medications were reviewed. The patient is aware that the medications can become less effective over a period of time because of tolerance. She also is aware that opioid medications can become cause of dependency. Overall, she feels that her medications are helpful. They enable her to engage in activities of daily living, she would definitely not be able to participate in without their use. She has taken the medication as prescribed. Keeps her medication in a guarded area. Has returned today with the desire to continue with her medications. We discussed the use of medications. At this juncture, a script for MS Contin 15 mg b.i.d., Hubbell 5/325, tizanidine 4 mg have all been rewritten. The patient will call us if she has any concerns. We would like to thank you for letting us participate in her care. We hope she continues to improve. <ELECTRONICALLY SIGNED> By: Sal Silverman MD 08/31/18 [id number] MD michael Ace
== END ==
LOC: PAIN 07:12
DX: L40.50 Arthropathic psoriasis, unspecified (principal); M19.90 Unspecified osteoarthritis, unspecified site; Z79.899 Other long term (current) drug therapy; Z79.52 Long term (current) use of systemic steroids; Z87.39 Personal history of other diseases of the musculoskeletal system and connective tissue; Z86.2 Personal history of diseases of the blood and blood-forming organs and certain disorders involving the immune mechanism; Z87.19 Personal history of other diseases of the digestive system

== ENCOUNTER → 2018-10-26 | Outpatient (CLI) | payer OTHER ==
[~2018-10-26] VITALS: Ht 175.3 cm; Wt 87.5 kg
[~2018-10-26] MED LIST changes: +CELEBREX 200 M200 MG PO
--- NOTE | ~2018-10-26 | HPC ---
[facility] [place] [address] PAIN MANAGEMENT CONSULTATION Name: MILA HWANG ANITA Room #: REG DI Camargo.#: [id number] Admission: 10/26/18 ������������������ Attend Phys: Sal Silverman MD Discharge: ������������������ Date of : 63 Report #: [id number] THIS REPORT FOR: //name// CC: Sal Tran DATE OF SERVICE: 10/26/2018 CHIEF COMPLAINT: Here for medication renewal. FOLLOWUP HISTORY: The patient is a very pleasant 53-year-old female who has been followed in the Pain Clinic because of chronic pain. As you recall, she has a history of psoriatic arthritis. She has significant effects of arthritic changes. The disease has significantly changed and remodeled her ankles, feet, hands and back. She finds that her pain is quite problematic. She has pain down her left ankle. She has returned today with a desire to undergo renewal of her medications. She has pain in her right low back area, right rib, right hip and down into her feet and ankles both of which is very intense as well as bilateral shoulder pain. Rates her pain as a 7/10. Notes that walking, standing and some days are worse than others. Notes particularly more problematic with weather change. Medications are helpful and the patient has returned today with a desire to have a renewal of medications. ALLERGIES: PENICILLIN. MEDICATIONS: Diltiazem 120 mg daily, aspirin 81 mg, Zanaflex 4 mg, morphine sulfate 15 mg, hydrocodone 5/325 one p.o. q.4-6 hours, Humira 40 mg/0.8 mg injection subcutaneous, Excedrin for migraine, Advil 220 mg t.i.d., Prednisone 5 mg daily. PAIN CLINIC ASSESSMENT/PQRS: 1. History of osteoarthritis/psoriatic arthritis. The patient is being treated for rheumatoid arthritis. 2. Height 5 feet 9 inches, weight 193 pounds, BMI is 28.5. 3. Vital signs: Blood pressure 143/85, pulse 72, respiratory rate 16, room air saturation 96%. 4. Pain in intensity 01/30. 5. Fall history: The patient has not fallen in the last 3 months. 6. Blood thinner. The patient is not on a blood thinning medication. 7. Hypertension. The patient is not being treated for hypertension. 8. Opioids. The [facility]. 9. Risk assessment tool, low for opioid risk. 9. Functional assessment tool 53/70 without use of medication. 10. Recreational drug use. The patient has never used recreational drugs. 11. Tobacco: The patient has never smoked. 12. Alcohol: The patient occasionally uses alcoholic beverages. [address] [address] PAIN MANAGEMENT CONSULTATION Name: MILA HWANG ANITA Room #: REG CL M.R.#: [id number] Admission: 10/26/18 ������������������ Attend Phys: Sal Silverman MD Discharge: ������������������ Date of : 63 Report #: [id number] PHYSICAL EXAMINATION: GENERAL: The patient is a well-developed, well-nourished white female. Appears her stated age. She is alert and oriented x 3. Her affect is appropriate. Speech is fluent. HEENT: Normocephalic, atraumatic. Extraocular eye muscles intact. Sclerae nonicteric. Mucous membranes are moist. NECK: Without adenopathy. The patient complains of upper extremity muscle soreness 4-5 for the major muscle groups in the upper extremity. Has severe arthritic changes in her hands with evidence of erosion with ulnar deviation. HEART: Regular rate. ABDOMEN: Nontender. Bowel sounds present. MUSCULOSKELETAL: The patient without significant scoliosis, kyphosis or lordosis. Does have pain and discomfort in the left ankle. Has had some fusion in this area. Continues to have pain in her knees. She has discomfort in her ankles, which limits her activity. IMPRESSION: 1. Chronic arthritic changes, status post arthritic complications over the last 23 years. 2. History of rheumatoid arthritis. 3. History of anemia. 4. History of stomach problems. 5. Chronic steroid use. RECOMMENDATIONS: We discussed treatment options with the patient. Risks and benefits of opioid use was discussed. We explained to the patient as she is aware that over a period of time tolerance develops. Medications become less effective. We have discussed the possibility of long-term use of opioids causing dependence. Overall, the patient feels that the medications are beneficial. She is able to get enjoy life to a greater extent. She is taking the medications prescribed. Keeps them locked up. She has had no complications from their use at this juncture. She has returned today for renewal of the medications. A script for her medications have been renewed, one for morphine sulfate 60 mg b.i.d. and Humphreys 5 mg 325 one p.o. q.i.d. have been written. The patient will also continue with the Celebrex. She will call us if she has any concerns. We would like to thank you for letting us participate in her care. We hope she continues to improve. ��������������������������������������������� ���������������������������������������� By: ��������������������������������������������� [id number] Sal Silverman MD /cary
[2018-10-26 11:18] VITALS: BP 143/85
--- NOTE | 2018-10-26 11:42 | NUR ---
Pain Clinic Assessment: 1. History of Osteoarthritis: PSORIATIC EVERYWHERE History of Rheumatoid Arthritis: Not Applicable 2. Height: 5 ft. 9 in. 175.3 cm. Weight: 193.0 lb. oz. 87.544 kg. Patient's BMI: 28.5 3. Vital Signs: BP: 143/85 Pulse: 72 Resp: 16 Temp: 02 Sat: 96 ECG Mon: 4. Pain Intensity: 7 5. Fall Risk: Dizziness: N Needs help standing or walking: N Fallen in the last 3 months: N Fall risk comments: 6. Patient on Blood Thinner: None 7. History of Hypertension: N 8. Opioid Therapy greater than 6 weeks: Y Opiate Contract Signed: 09/04/17 9. Risk Assessment Tool Provided: LOW RISK 10. Functional Assessment Tool: 53/70 WITHOUT MEDS 11. Recreational Drug Use: Never Drug Type: Tobacco Use: Never Smoker Tobacco Type: Amount or Packs/day: How Many Years: Alcohol Use: Yes Frequency: Quant:
== END ==
LOC: PAIN 06:59
DX: M19.90 Unspecified osteoarthritis, unspecified site (principal); G89.29 Other chronic pain; Z87.39 Personal history of other diseases of the musculoskeletal system and connective tissue; Z79.899 Other long term (current) drug therapy; Z79.52 Long term (current) use of systemic steroids; Z86.2 Personal history of diseases of the blood and blood-forming organs and certain disorders involving the immune mechanism; Z87.19 Personal history of other diseases of the digestive system

== ENCOUNTER → 2018-12-21 | Outpatient (CLI) | payer OTHER ==
[~2018-12-21] VITALS: Ht 175.3 cm; Wt 88.9 kg
[~2018-12-21] MED LIST changes: +CELEBREX 200 M200 M1 PO
[2018-12-21 09:55] VITALS: BP 131/83
--- NOTE | 2018-12-21 10:02 | NUR ---
Pain Clinic Assessment: 1. History of Osteoarthritis: PSORIATIC all joint History of Rheumatoid Arthritis: psoriatic 2. Height: 5 ft. 9 in. 175.3 cm. Weight: 196.0 lb. oz. 88.905 kg. Patient's BMI: 28.9 3. Vital Signs: BP: 131/83 Pulse: 80 Resp: 16 Temp: 02 Sat: 97 ECG Mon: 4. Pain Intensity: 6 5. Fall Risk: Dizziness: N Needs help standing or walking: N Fallen in the last 3 months: N Fall risk comments: 6. Patient on Blood Thinner: None 7. History of Hypertension: Y 8. Opioid Therapy greater than 6 weeks: Y Opiate Contract Signed: 09/04/17 9. Risk Assessment Tool Provided: LOW RISK-0 10. Functional Assessment Tool: 58/70 11. Recreational Drug Use: Never Drug Type: Tobacco Use: Never Smoker Tobacco Type: Amount or Packs/day: How Many Years: Alcohol Use: Yes Frequency: Monthly Quant: 1-2
--- NOTE | 2018-12-24 08:31 | HPC ---
[facility] [address] [place] [address] PAIN MANAGEMENT CONSULTATION Name: JAIDENMILA ANITA Room #: REG DI Camargo.#: [id number] Admission: 12/21/18 ������������������ Attend Phys: Anahi Gunn Discharge: ������������������ Date of : 63 Report #: [id number] THIS REPORT FOR: //name// CC: Anahi Tran DATE OF SERVICE: 12/21/2018 CHIEF COMPLAINT: Psoriatic arthritis and chronic pain. HISTORY OF PRESENT ILLNESS: This is a very pleasant 53-year-old female who returns to the pain clinic today for refill of her medications. She uses these medications to help treat her psoriatic arthritis that she has pain in her lower back, all of her joints and complaining of right ankle pain today. She states that her pain is 6/10, mostly an aching and constant pain with walking and standing. The medications are helpful as well as heat and cold. She has no problems with constipation as long as she takes MiraLax. She does have some Movantik samples at home if she does have significant constipation and she does not have any day time sleepiness. The patient is complaining of significant right ankle pain today. She tells me that it has been ongoing for about 6 months. She feels that it is worse when she puts her shoes on or walks. She wonders if it might be a tendon that is injured that is causing such significant pain, and she thinks it has gotten to the point now she is going to go and see her orthopedic doctor. ALLERGIES: PENICILLIN AND TETRACYCLINE. CURRENT LIST OF MEDICATIONS: Morphine sulfate 50 mg b.i.d., hydrocodone 5/325 p.r.n., Celebrex 200 mg daily, Tizanidine 4 mg p.r.n., Cardizem 120 mg daily, Humira 40 mg, aspirin, ibuprofen p.r.n., and prednisone. PQRS: 1. The patient has a history of osteoarthritis, rheumatoid arthritis, and she is being treated for psoriatic arthritis. She is being treated for rheumatoid arthritis. 2. Height is 5 feet 9 inches, weight is 196, and BMI is 28. 3. Vital signs: Blood pressure is 131/83, pulse 80, respirations 16 and oxygen sat is 97%. 4. Pain score is 6/10. 5. Fall risk. Denies dizziness. Does not need help with walking or standing. Has not fallen in the last 3 months. 6. The patient is not on blood thinners. She does take medicines for hypertension. 7. Opioid therapy is greater than 6 weeks; therefore, an opioid sign contract is on the chart. Her risk assessment tool is low[place] [address] PAIN MANAGEMENT CONSULTATION Name: MILA HWANG ANITA Room #: REG DI Reid#: [id number] Admission: 12/21/18 ������������������ Attend Phys: Anahi Gunn Discharge: ������������������ Date of : 63 Report #: [id number] 58/70. 8. Recreational drug use, she denies. She is not a smoker and drinks occasional alcohol. We did check the prescription monitoring systems. The patient is filling appropriately for her medications in a timely fashion. We have recent drug screen on the chart that is appropriate for her medications. PHYSICAL EXAMINATION: GENERAL: This is a well-developed, well-nourished white female who appears her stated age placing her pain score today at 6/10. She is alert and oriented. HEENT: Normocephalic, atraumatic. Extraocular eye muscles are intact. Sclerae is non intrinsic. Mucous membranes are moist. Neck is without adenopathy or JVD. MUSCULOSKELETAL: The patient has severe arthritic changes in her hands as evidence of erosion of ulnar deviation. She does complain of significant tenderness in them. The patient does have discomfort in her right ankle. The strength is not diminished, just significant sharp shooting pain upon ambulation. The patient does walk with an antalgic gait. She has tenderness in bilateral knees and tenderness across her lumbar spine. She is without significant kyphosis, scoliosis or lordosis. Her lower extremity strength judged to be 4/5 in all major muscle groups. IMPRESSION: 1. Chronic arthritic changes status post psoriatic arthritis. 2. History of rheumatoid arthritis. 3. Chronic steroid use. 4. Right ankle pain. We reviewed the fact that opiate medications are being used to provide analgesia adequate to support activities of daily living, not attempting to achieve a specific pain score on the 0-10 Visual Analog Scale. The current opiate medications are providing sufficient analgesia to allow the patient to participate in activities of daily living. The patient is not exhibiting any aberrant behavior suggestive of drug diversion. The patient is not having any adverse reactions to medications. The patient is not suffering from daytime somnolence or mental acuity changes. The patient is managing opiate-induced constipation with appropriate [id number] agents and dietary considerations. The patient was counseled on concern for caution with operating a motor vehicle while using opiate medications. A physical exam was performed and the patient's functional status was evaluated. All patients with back pain were advised against the bed rest greater than 4 days and were advised to return to normal activities. Pain score assessment was noted and the treatment plan was reviewed with the patient. All current medications, both prescribed and OTC were reviewed and reconciled on the [address] [address] PAIN MANAGEMENT CONSULTATION Name: MILA HWANG Room #: REG [facility].#: [id number] Admission: 12/21/18 ������������������ Attend Phys: Anahi Gunn Discharge: ������������������ Date of : 63 Report #: [id number] electronic medical record. Tobacco screening was accomplished and smoking cessation was advised when indicated. BMI was noted and diet/exercise modification was recommended for all patients following outside normal parameters. I reviewed with the patient today their responsibilities to safeguard prescription medications, reviewed their responsibility to utilize medications only as prescribed by the physician. They are to seek and receive pain medications only from 1 physician group ( [facility]). They are to use 1 pharmacy and keep the clinic informed if they change pharmacies. Their responsibilities include making followup visits in a timely fashion and to avoid abrupt discontinuation of medication usage. Their responsibilities further include bringing their medications (bottles from the pharmacy with residual pills) to the visit for possible confirmation of pill counts and the patient understands it is their responsibility to submit to random drug screens to ensure both that the medications prescribed are present, and that no other controlled substances are present. All prescriptions provided today were generated electronically. PLAN: 1. We discussed treatment options with the patient today. The patient tells me that her current medication regimen helps quite well. Thus she is wanting to take 2 Celebrex tablets a day. I explained to her that is not the practice of our clinic to give 400 mg of Celebrex. She would need to discuss that with her dag sprayer. We worry about GI upset and GI bleeds as well as kidney function and we do not feel comfortable avoiding that higher dose. The patient verbalizes understanding. She agrees to take the current script of 30 tablets of the Celebrex 200 mg for this month and we will discuss it with her dag sprayer at the next appointment with them. 2. Script given for her MS-Contin 50 mg b.i.d., quantity 60, and Narco 5/325, quantity 100 for today and 4-week release as well as tizanidine 4 mg for 2 months. 3. We discussed the patient's right ankle pain and heel. It does radiate from her Achilles tendon upward into her calves. I explained to the patient that it may be tendon related, it is not so much ankle related, but encouraged her to see an orthopedic doctor since it has been going on for greater than 6 months. She verbalizes understanding and will call this next week to make an appointment. 4. The patient's current morphine milliequivalent is below the CBC guidelines, which places her at [address] 4[address] Drake Silverman did see the patient today and collaborated care as well. The patient returns in 2 months for medication management. ��������������������������������������������� <ELECTRONICALLY SIGNED> ���������������������������������������� By: Anahi Gunn ��������������������������������������������� 12/24/18 0831 [id number] Anahi Gunn /nt
== END ==
LOC: PAIN 09:41
DX: L40.50 Arthropathic psoriasis, unspecified (principal); M25.571 Pain in right ankle and joints of right foot; M06.9 Rheumatoid arthritis, unspecified; M54.5 Low back pain; Z79.82 Long term (current) use of aspirin; Z79.899 Other long term (current) drug therapy; F19.90 Other psychoactive substance use, unspecified, uncomplicated; Z88.0 Allergy status to penicillin; Z88.8 Allergy status to other drugs, medicaments and biological substances

== ENCOUNTER → 2019-02-15 | Outpatient (CLI) | payer OTHER ==
[~2019-02-15] VITALS: Ht 175.3 cm; Wt 87.5 kg
[~2019-02-15] MED LIST changes: +HYDROCODON-ACE1 EAC7 PO
[2019-02-15 11:11] VITALS: BP 153/103
--- NOTE | 2019-02-15 11:33 | NUR ---
Pain Clinic Assessment: 1. History of Osteoarthritis: PSORIATIC all joint History of Rheumatoid Arthritis: psoriatic 2. Height: 5 ft. 9 in. 175.3 cm. Weight: 192.8 lb. oz. 87.454 kg. Patient's BMI: 28.5 3. Vital Signs: BP: 153/103 Pulse: 70 Resp: 20 Temp: 02 Sat: 100 ECG Mon: 4. Pain Intensity: 5 5. Fall Risk: Dizziness: Y Needs help standing or walking: N Fallen in the last 3 months: N Fall risk comments: 6. Patient on Blood Thinner: None 7. History of Hypertension: Y 8. Opioid Therapy greater than 6 weeks: Y Opiate Contract Signed: 09/04/17 9. Risk Assessment Tool Provided: LOW RISK-0 10. Functional Assessment Tool: 58/70 11. Recreational Drug Use: Never Drug Type: Tobacco Use: Never Smoker Tobacco Type: Amount or Packs/day: How Many Years: Alcohol Use: Yes Frequency: Monthly Quant: 1-2
--- NOTE | 2019-02-19 08:00 | HPC ---
[facility] [place] [address] PAIN MANAGEMENT CONSULTATION Name: JAIDENEFRAINA ANITA Room #: REG DI Camargo.#: [id number] Admission: 02/15/19 ������������������ Attend Phys: Anahi Gunn Discharge: ������������������ Date of : 63 Report #: [id number] THIS REPORT FOR: //name// CC: Anahi Darden Chelsea DATE OF SERVICE: 02/15/2019 CHIEF COMPLAINT: Psoriatic arthritis, chronic pain, and right ankle pain. HISTORY OF PRESENT ILLNESS: This is a very pleasant 53-year-old female who returns to the pain clinic today for her refills of her medication that she uses to help treat her psoriatic arthritis. She tells me that it is very beneficial in helping control her pain. She has been having some ongoing right ankle pain and tells me she did go see an orthopedic doctor, which we encouraged her to do. She finds that she does have a stress fracture in her ankle and is awaiting a boot to be wearing. She tells me she may need a possible fusion of her ankle as she has already had her left ankle fused in the past. She will be seeing that doctor next week. The patient tells me she has low back pain. All of her joints hurt as well as her right hip and right ankle. Her pain score is 5/10 today, worse with walking and activity and weather changes, but her medications and sitting are very helpful. She tells me she uses MiraLax, which has been beneficial in controlling her constipation when she does have issues. She does not have any daytime sleepiness as a result of her medications. ALLERGIES: PENICILLIN AND TETRACYCLINE. CURRENT LIST OF MEDICATIONS: Celebrex 200 mg daily, Zanaflex 4 mg p.r.n., morphine sulfate ER 15 mg b.i.d., hydrocodone 5/325 p.r.n., Cardizem 120 mg daily, Humira subQ, aspirin p.r.n., ibuprofen p.r.n., prednisone 5 mg daily. PQRS: 1. She has a history of osteoarthritis, rheumatoid arthritis and psoriatic arthritis. She is being treated for these. 2. Height 5 feet 9 inches, weight is 192, BMI is 28. 3. VITAL SIGNS: Blood pressure 153/103, pulse is 70, respirations 20, oxygen sat is 100. 4. Pain score is 5/10. 5. Complains of some dizziness, does not need help walking or standing, has not fallen in the last 3 months. 6. The patient is not on any blood thinners, but does take medicine for hypertension. 7. Opioid therapy is greater than 6 weeks; therefore, an opioid signed contract is on the chart. Her risk assessment tool is low[place] [address] PAIN MANAGEMENT CONSULTATION Name: MILA HWANG ANITA Room #: REG CL M.R.#: [id number] Admission: 02/15/19 ������������������ Attend Phys: Anahi Gunn Discharge: ������������������ Date of : 63 Report #: [id number] 58/70. 8. Recreational drug use, she denies. She is not a smoker and occasionally drinks alcohol. According to the prescription monitoring system, filling appropriately for her medications in a timely fashion and there is a recent drug screen on the chart as well. PHYSICAL EXAMINATION: GENERAL: This is a well-developed, well-nourished, well-hydrated 53-year-old female who appears her stated age, placing her current pain score today at 5/10. HEENT: Normocephalic, atraumatic. Extraocular eye muscles are intact. Mucous membranes are moist. NECK: Without adenopathy or JVD. MUSCULOSKELETAL: She has severe arthritic changes in her hands. She does complain of significant tenderness in them. Her right ankle causes her much pain. It is a sharp shooting pain with ambulation. She walks with an antalgic gait. She is without significant kyphosis, scoliosis or lordosis. Her lower extremity strength judged to be 4/5 in all major muscle groups bilaterally. IMPRESSION: 1. Chronic arthritic changes, status post changes regarding from psoriatic arthritis 2. History of rheumatoid arthritis. 3. Chronic steroid use. 4. Right ankle pain. 5. Low back pain. We reviewed the fact that opiate medications are being used to provide analgesia adequate to support activities of daily living, not attempting to achieve a specific pain score on the 0-10 Visual Analog Scale. The current opiate medications are providing sufficient analgesia to allow the patient to participate in activities of daily living. The patient is not exhibiting any aberrant behavior suggestive of drug diversion. The patient is not having any adverse reactions to medications. The patient is not suffering from daytime somnolence or mental acuity changes. The patient is managing opiate-induced constipation with appropriate fint-saq-lhoyale agents and dietary considerations. The patient was counseled on concern for caution with operating a motor vehicle while using opiate medications. A physical exam was performed and the patient's functional status was evaluated. All patients with back pain were advised against the bed rest greater than 4 days and were advised to return to normal activities. Pain score assessment was noted and the treatment plan was reviewed with the patient. All current medications, both prescribed and OTC were reviewed and reconciled on the electronic medical record. Tobacco screening was accomplished and smoking [address] [address] PAIN MANAGEMENT CONSULTATION Name: MILA HWANG Room #: REG [facility].#: [id number] Admission: 02/15/19 ������������������ Attend Phys: Anahi BLOOD Luis A Discharge: ������������������ Date of : 63 Report #: [id number] cessation was advised when indicated. BMI was noted and diet/exercise modification was recommended for all patients following outside normal parameters. I reviewed with the patient today their responsibilities to safeguard prescription medications, reviewed their responsibility to utilize medications only as prescribed by the physician. They are to seek and receive pain medications only from 1 physician group ( [facility]). They are to use 1 pharmacy and keep the clinic informed if they change pharmacies. Their responsibilities include making followup visits in a timely fashion and to avoid abrupt discontinuation of medication usage. Their responsibilities further include bringing their medications (bottles from the pharmacy with residual pills) to the visit for possible confirmation of pill counts and the patient understands it is their responsibility to submit to random drug screens to ensure both that the medications prescribed are present, and that no other controlled substances are present. All prescriptions provided today were generated electronically. PLAN: 1. We discussed treatment options with the patient today. The patient tells me she is awaiting a boot for her right ankle. She is to follow up with her orthopedic doctor on Monday. I encouraged her to change that appointment, so she can see if the boot has been beneficial in helping control some of her pain since it is taking longer to have been made. The patient is agreeable with that. She thinks that she will call and move her appointment back. 2. We did discuss with the patient does need to have surgery on her right ankle as to decrease her opioid use prior to the surgery date by few days, those will be beneficial in her postoperative pain. Also, if the patient does get a prescription from her surgeon she is to call and notify us what that medication is. The patient verbalizes understanding. 3. Again, we discussed if she does need to have surgery, she is trying to wait until the fall to do this, but encouraged her to come for an appointment for her prescription refills prior to her ankle fusion since she will be on bed rest for several months after her surgery. 4. We did discuss also constipation issues that she has ongoing now with MiraLax controlling that, but also potential increased constipation on bed rest with increased narcotic use. 5. Scripts given today for tizanidine 4 mg t.i.d., #90 with 1 refill, Celebrex 200 mg, #30 with 1 refill, MS Contin 15 mg b.i.d. for today and 4-week release as well as hydrocodone 5/325 t.i.d. to q.i.d., #100 for today and 4-week release. [address] [address] PAIN MANAGEMENT CONSULTATION Name: MILA HWANG Room #: REG DI Reid#: [id number] Admission: 02/15/19 ������������������ Attend Phys: Anahi Gunn Discharge: ������������������ Date of : 63 Report #: [id number] 6. The patient is seen in collaboration today with Dr. Spike Silverman. The patient will call for an appointment as needed. ��������������������������������������������� <ELECTRONICALLY SIGNED> ���������������������������������������� By: Anahi Gunn ��������������������������������������������� 02/19/19 0800 [id number] Anahi Gunn /nt
== END ==
LOC: PAIN 06:46
DX: M25.571 Pain in right ankle and joints of right foot (principal); M54.5 Low back pain; M19.90 Unspecified osteoarthritis, unspecified site; F15.90 Other stimulant use, unspecified, uncomplicated

== ENCOUNTER → 2019-04-10 | Outpatient (CLI) | payer OTHER ==
[~2019-04-10] VITALS: Ht 175.3 cm; Wt 88.5 kg
[2019-04-10 13:33] VITALS: BP 143/81
--- NOTE | 2019-04-10 13:49 | NUR ---
Pain Clinic Assessment: 1. History of Osteoarthritis: PSORIATIC all joint History of Rheumatoid Arthritis: psoriatic 2. Height: 5 ft. 9 in. 175.3 cm. Weight: 195.0 lb. oz. 88.452 kg. Patient's BMI: 28.8 3. Vital Signs: BP: 143/81 Pulse: 74 Resp: 16 Temp: 02 Sat: 97 ECG Mon: 4. Pain Intensity: 6-TODAY 5. Fall Risk: Dizziness: Y Needs help standing or walking: N Fallen in the last 3 months: N Fall risk comments: 6. Patient on Blood Thinner: None 7. History of Hypertension: Y 8. Opioid Therapy greater than 6 weeks: Y Opiate Contract Signed: 09/04/17 9. Risk Assessment Tool Provided: LOW RISK-0 10. Functional Assessment Tool: 58/ 11. Recreational Drug Use: Never Drug Type: Tobacco Use: Never Smoker Tobacco Type: Amount or Packs/day: How Many Years: Alcohol Use: Yes Frequency: Quant:
--- NOTE | 2019-04-15 14:00 | HPC ---
[facility] [place] [address] [address] PAIN MANAGEMENT CONSULTATION Name: JAIDENEFRAINA ANITA Room #: REG Blaze Camargo.#: [id number] Admission: 04/10/19 ������������������ Attend Phys: Anahi Gunn Discharge: ������������������ Date of : 63 Report #: [id number] THIS REPORT FOR: //name// CC: Anahi Gunn Adelso Tran DATE OF SERVICE: 04/10/2019 CHIEF COMPLAINT: Psoriatic arthritis, chronic pain and right ankle pain. HISTORY OF PRESENT ILLNESS: 1. This is a very pleasant 53-year-old female who returns to the pain clinic today for refill of her medications that she uses to help treat her psoriatic arthritis, lower back pain, right ankle pain and hip pain. Her current pain score today is 6/10. It is worse with standing and walking and weather changes, but she finds her medication beneficial as well as sitting and heat. She reports today that she has had a slight increase in her pain, especially in her rib area lately. She is going to talk to her director of music therapy about returning to [facility] from [facility]. She thinks that that was more beneficial in controlling some of her arthritic pain. 2. The patient is currently wearing an AFO brace on her right ankle for support. She is trying to prolong having her ankle fused. It is especially made for her with joint in place. She tells me that it has helped some of her ankle pain. The patient also tells me she has no problems with constipation as long as she eats apples and also denies any daytime sleepiness. ALLERGIES: PENICILLIN. CURRENT LIST OF MEDICATIONS: Celebrex 200 mg daily, tizanidine 4 mg 3 times a day p.r.n., morphine sulfate 15 mg b.i.d., hydrocodone 5/325 3-4 times a day, Cardizem 120 mg daily, Humira, ibuprofen p.r.n., prednisone 5 mg daily. PQRS: 1. She has osteoarthritis in all of her joints and psoriatic rheumatoid arthritis. 2. Height is 5 feet 9 inches, weight is 195, BMI is 28. 3. Vital signs 143/81, pulse is 74, respirations 16, oxygen sat is 97. 4. Pain score 6/10. 5. Complains of slight dizziness. Does need help walking, has not fallen in the last 3 months. 6. The patient is not on any blood thinners, but does take medicine for hypertension. 7. Opioid therapy is greater than 6 weeks; therefore, an opioid signed contract is on the chart. Risk assessment tool is low. Functional assessment 50/70. 8. Recreational drug use, she denies. She is not a smoker [place] [address] PAIN MANAGEMENT CONSULTATION Name: MILA HWANG ANITA Room #: REG DI Reid#: [id number] Admission: 04/10/19 ������������������ Attend Phys: Anahi JEREMI Gunn Discharge: ������������������ Date of : 63 Report #: [id number] According to the prescription monitoring system, the patient is filling appropriately for her medications. Her morphine mEq per day according to the CDC guidelines is 45-50 which is well under their guidelines. There is a drug screen on the chart that is appropriate as well. We will check a random screen on her at her next visit. PHYSICAL EXAMINATION: GENERAL: This is a well-developed, well-nourished 53-year-old female who appears her stated age, placing her current pain score at 6/10 today. HEENT: Normocephalic, atraumatic. Extraocular eye muscles are intact. Mucous membranes are moist. NECK: Without adenopathy or JVD. MUSCULOSKELETAL: She has severely arthritic hands. Does complain of tenderness in them as well as her right ankle. She is wearing a specialized AFO brace that has decreased some of her pain. She walks with an antalgic gait. She is without significant kyphosis, scoliosis or lordosis. Her lower extremity strength judged to be 4/5 in all major muscle groups bilaterally. IMPRESSION: 1. Chronic arthritic changes status as a result of her psoriatic arthritis. 2. History of rheumatoid arthritis, chronic steroid use. 3. Right ankle pain. 4. Low back pain. We reviewed the fact that opiate medications are being used to provide analgesia adequate to support activities of daily living, not attempting to achieve a specific pain score on the 0-10 Visual Analog Scale. The current opiate medications are providing sufficient analgesia to allow the patient to participate in activities of daily living. The patient is not exhibiting any aberrant behavior suggestive of drug diversion. The patient is not having any adverse reactions to medications. The patient is not suffering from daytime somnolence or mental acuity changes. The patient is managing opiate-induced constipation with appropriate blrk-hyv-aezhuul agents and dietary considerations. The patient was counseled on concern for caution with operating a motor vehicle while using opiate medications. A physical exam was performed and the patient's functional status was evaluated. All patients with back pain were advised against the bed rest greater than 4 days and were advised to return to normal activities. Pain score assessment was noted and the treatment plan was reviewed with the patient. All current medications, both prescribed and OTC were reviewed and reconciled on the electronic medical record. Tobacco screening was accomplished and smoking cessation was advised when indicated. BMI was noted and diet/exercise modification was recommended for all patients following outside normal parameters. [facility] [address] [place] [address] PAIN MANAGEMENT CONSULTATION Name: MILA HWANG ANITA Room #: REG CL M.R.#: [id number] Admission: 04/10/19 ������������������ Attend Phys: Anahi Gunn Discharge: ������������������ Date of : 63 Report #: [id number] I reviewed with the patient today their responsibilities to safeguard prescription medications, reviewed their responsibility to utilize medications only as prescribed by the physician. They are to seek and receive pain medications only from 1 physician group ( [facility]). They are to use 1 pharmacy and keep the clinic informed if they change pharmacies. Their responsibilities include making followup visits in a timely fashion and to avoid abrupt discontinuation of medication usage. Their responsibilities further include bringing their medications (bottles from the pharmacy with residual pills) to the visit for possible confirmation of pill counts and the patient understands it is their responsibility to submit to random drug screens to ensure both that the medications prescribed are present, and that no other controlled substances are present. All prescriptions provided today were generated electronically. PLAN: 1. We discussed treatment options with the patient today. The patient is doing quite well on her current medication regimen. We will refill her Tizanidine 4 mg 3 times a day, #90 with 5 additional refills and Celebrex 200 mg, #30 with 5 additional refills. This is a medication fills for a total of 6 months. 2. Hydrocodone 5/325, #100 and MS Contin 15 mg b.i.d., #60 for today and 4-week release. The patient will return in 2 months for medication management refills. The patient is seen today in collaboration with Dr. Spike Silverman, he did see the patient as well. ��������������������������������������������� <ELECTRONICALLY SIGNED> ���������������������������������������� By: Anahi Gunn ��������������������������������������������� 04/15/19 1400 1445 0042 Anahi Gunn /nt
== END ==
LOC: PAIN 07:06
DX: M25.571 Pain in right ankle and joints of right foot (principal); L40.50 Arthropathic psoriasis, unspecified; M06.9 Rheumatoid arthritis, unspecified; Z88.0 Allergy status to penicillin; Z79.899 Other long term (current) drug therapy

== ENCOUNTER → 2019-06-07 | Outpatient (CLI) | payer OTHER ==
[~2019-06-07] VITALS: Ht 175.3 cm; Wt 86.6 kg
[2019-06-07 09:45] VITALS: BP 158/93
--- NOTE | 2019-06-07 10:02 | NUR ---
Pain Clinic Assessment: 1. History of Osteoarthritis: PSORIATIC all joint History of Rheumatoid Arthritis: psoriatic 2. Height: 5 ft. 9 in. 175.3 cm. Weight: 191.0 lb. oz. 86.637 kg. Patient's BMI: 28.2 3. Vital Signs: BP: 158/93 Pulse: 73 Resp: 16 Temp: 02 Sat: 100 ECG Mon: 4. Pain Intensity: 5-6 5. Fall Risk: Dizziness: N Needs help standing or walking: N Fallen in the last 3 months: N Fall risk comments: 6. Patient on Blood Thinner: None 7. History of Hypertension: Y 8. Opioid Therapy greater than 6 weeks: Y Opiate Contract Signed: 09/04/17 9. Risk Assessment Tool Provided: LOW RISK-0 10. Functional Assessment Tool: 58/70 11. Recreational Drug Use: Never Drug Type: Tobacco Use: Never Smoker Tobacco Type: Amount or Packs/day: How Many Years: Alcohol Use: Yes Frequency: Monthly Quant: 1-2
--- NOTE | 2019-06-10 11:11 | HPC ---
[facility] [address] [place] [place] [address] PAIN MANAGEMENT CONSULTATION Name: MILA HWANG ANITA Room #: REG [facility] M.R.#: [id number] Admission: 06/07/19 Attend Phys: Anahi Gunn Discharge: Date of : 63 Report #: [id number] THIS REPORT FOR: //name// CC: Anahi Tran DO DATE OF SERVICE: 06/07/2019 CHIEF COMPLAINT: Psoriatic arthritis, chronic pain and right ankle pain. HISTORY OF PRESENT ILLNESS: This is a very pleasant 53-year-old female who returns to the pain clinic today for refill of her medications that she uses to treat multiple pain generators including her psoriatic arthritis as well as her right ankle and lower back. Today, she rates her pain score at 5/10. It is an aching, throbbing pain that is worse with standing and walking and weather changes. She reports that her medication affords her the ability to be as active as she is able as well as sitting and using the hot tub. She does report occasional constipation, though she does manage that with MiraLax. She denies any daytime sleepiness. The patient reports she is going to see next week as a new rheumatoid doctor and she is very excited about seeing when he has to offer her. ALLERGIES: PENICILLIN and TETRACYCLINE. CURRENT LIST OF MEDICATIONS: Morphine sulfate 15 mg b.i.d., hydrocodone 5/325 p.r.n., Celebrex 200 mg daily, tizanidine 4 mg t.i.d., Cardizem 120 mg daily, Humira, Advil p.r.n. and prednisone 5 mg daily. PQRS: 1. She has osteoarthritis of multiple joints as well as psoriatic arthritis. 2. Height is 5 feet 9 inches, weight is 191, BMI is 28. 3. Vital signs: Blood pressure 158/93, pulse is 73, respirations 16, oxygen sat is 100. 4. Pain score is 5/10. 5. Denies dizziness, does not need help walking or standing, has not fallen in the last 3 months. 6. The patient is not on any blood thinners, but does take medicine for hypertension. 7. Opioid therapy is greater than 6 weeks; therefore, an opiate signed contract is on the chart. Risk assessment tool is low. Functional assessment is 58/70. 8. Recreational drug use, she denies. She is not a smoker and [place] [address] PAIN MANAGEMENT CONSULTATION Name: MILA HWANG Room #: REG CLBlaze Reid#: [id number] Admission: 06/07/19 Attend Phys: Anahi Gunn Discharge: Date of : 63 Report #: [id number] According to the prescription monitoring system, the patient is filling appropriately for her medications. The pharmacy did make an error, stating Drake Herrera filled her last prescriptions, which is a dentist in [place]. The patient will talk to the pharmacy about this error. We will collect a random drug screen on this patient. She tells me she does safeguard her medications. Her current morphine milliequivalent is 50 mmes per day. PHYSICAL EXAMINATION: GENERAL: This is a well-developed, well-nourished 53-year-old female who appears her stated age, placing her current pain score 5/10 today. HEENT: Normocephalic, atraumatic. Extraocular eye muscles are intact. Mucous membranes are moist. NECK: Without adenopathy or JVD. MUSCULOSKELETAL: She has severe arthritic hands with rheumatoid nodules present. She has tenderness in her right ankle. Wearing an AFO brace. She does have an antalgic gait. She is without significant scoliosis, kyphosis or lordosis. She has tenderness across her lumbar spine as well. IMPRESSION: 1. Chronic arthritic changes as a result of psoriatic arthritis and osteoarthritis. 2. Right ankle pain. 3. Low back pain. 4. Management of high risk medications under terms of written opioid agreement. We reviewed the fact that opiate medications are being used to provide analgesia adequate to support activities of daily living, not attempting to achieve a specific pain score on the 0-10 Visual Analog Scale. The current opiate medications are providing sufficient analgesia to allow the patient to participate in activities of daily living. The patient is not exhibiting any aberrant behavior suggestive of drug diversion. The patient is not having any adverse reactions to medications. The patient is not suffering from daytime somnolence or mental acuity changes. The patient is managing opiate-induced constipation with appropriate mnev-jvy-twspaue agents and dietary considerations. The patient was counseled on concern for caution with operating a motor vehicle while using opiate medications. PLAN: 1. We discussed treatment options with the patient today. The patient finds her medications very beneficial in controlling her pain and keeping her active. We will refill her MS Contin 15 mg, #60 for today and 4-week release and hydrocodone 5/325, #100 for today and 4-week release. 2. The patient does not need tizanidine or Celebrex filled currently. 3. We did obtain a specimen for random drug screen today. [address] [address] PAIN MANAGEMENT CONSULTATION Name: MILA HWANG Room #: REG CLI Raman.#: [id number] Admission: 06/07/19 Attend Phys: Anahi Gunn Discharge: Date of : 63 Report #: [id number] 4. The patient will return in followup in 2 months. The patient is seen in collaboration with Dr. Drake Silverman. <ELECTRONICALLY SIGNED> By: Anahi Gunn 06/10/19 1111 1035 1107 Anahi Gunn /cary
== END ==
LOC: PAIN 06:45
DX: L40.50 Arthropathic psoriasis, unspecified (principal); M25.571 Pain in right ankle and joints of right foot; M54.5 Low back pain; Z79.891 Long term (current) use of opiate analgesic

== ENCOUNTER → 2019-07-31 | Outpatient (CLI) | payer OTHER ==
[~2019-07-31] VITALS: Ht 175.3 cm; Wt 84.1 kg
[~2019-07-31] MED LIST changes: +TRAMADOL 50 MG50 MG PO
[2019-07-31 09:27] VITALS: BP 150/80
--- NOTE | 2019-07-31 10:14 | NUR ---
Pain Clinic Assessment: 1. History of Osteoarthritis: PSORIATIC all joint History of Rheumatoid Arthritis: psoriatic 2. Height: 5 ft. 9 in. 175.3 cm. Weight: 185.5 lb. oz. 84.142 kg. Patient's BMI: 27.4 3. Vital Signs: BP: 150/80 Pulse: 79 Resp: 16 Temp: 02 Sat: 100 ECG Mon: 4. Pain Intensity: 7 5. Fall Risk: Dizziness: N Needs help standing or walking: N Fallen in the last 3 months: N Fall risk comments: 6. Patient on Blood Thinner: None 7. History of Hypertension: Y 8. Opioid Therapy greater than 6 weeks: Y Opiate Contract Signed: 09/04/17 9. Risk Assessment Tool Provided: LOW RISK-0 10. Functional Assessment Tool: 58/70 11. Recreational Drug Use: Never Drug Type: Tobacco Use: Never Smoker Tobacco Type: Amount or Packs/day: How Many Years: Alcohol Use: Yes Frequency: Quant:
--- NOTE | 2019-08-14 16:47 | HPC ---
[facility] [place] [address] PAIN MANAGEMENT CONSULTATION Name: MILA HWANG ANITA Room #: REG [facility].#: [id number] Admission: 07/31/19 Attend Phys: Sal Silverman MD Discharge: Date of : 63 Report #: [id number] THIS REPORT FOR: //name// CC: Sal Tran DATE OF SERVICE: 07/31/2019 PRIMARY CARE PHYSICIAN: Adelso Tran, FOLLOWUP: Here for medications. HISTORY: The patient is a 53-year-old female who has been followed in the pain clinic because of chronic pain. As you recall, she suffers from significant disability because of rheumatoid arthritis. She has significant rheumatological changes in her hands. She rates her pain as a 7/10 at this point. Has pain in the low back area. Has pain in her right ribs, right hip and generally all joints. Her right ankle is painful as well. Describes her discomfort as aching with throbbing and tenderness. Standing, walking on some days can be quite problematic. Notes a worsening of her pain when the weather changes. Notes her pain improves somewhat when she is sitting, sometimes application of cold or heat can be helpful, likes to soak in a warm tub. Feels her medications are working reasonably well. She would like to continue with her medications. She is not having any significant problems with them. ALLERGIES: PENICILLIN, TETRACYCLINE. CURRENT MEDICATIONS: Morphine sulfate 15 mg b.i.d., hydrocodone 5/325 p.o. , Celebrex 200 mg daily, tizanidine 4 mg t.i.d., Cardizem 120 mg daily, Humira, Advil p.r.n., prednisone 5 mg daily. PAIN CLINIC ASSESSMENT AND PQRS: 1. The patient has osteoarthritis in multiple joints as well as psoriatic arthritis. 2. Height 5 feet 9 inches, weight 185 pounds, BMI is 27.4. 3. Vital signs: Blood pressure 150/80, pulse 79, respiratory rate 16, room air saturation is 100%. 4. Pain intensity 01/30. 5. Fall history: The patient has not fallen since we saw her last. 6. Blood thinner. The patient is not on a blood thinning medication. 7. Hypertension. The patient is being treated for hypertension. 8. Opioids greater than 6 weeks. The patient received medication from one source, the pain clinic. 9. Risk assessment tool, low for opioid use. 10. Functional assessment tool 58/70. 11. Recreational drug use: [place] [address] PAIN MANAGEMENT CONSULTATION Name: MILA HWANG Room #: REG [facility].#: [id number] Admission: 07/31/19 Attend Phys: Sal Silverman MD Discharge: Date of : 63 Report #: [id number] 12. Tobacco: The patient has never smoked. 13. Alcohol: The patient occasionally drinks alcoholic beverages. PHYSICAL EXAMINATION: GENERAL: The patient is a well-developed, well-nourished white female. Appears her stated age. She is alert and oriented x 3. Affect is appropriate. Speech is fluent. HEENT: Normocephalic, atraumatic. Extraocular eye muscles intact. NECK: Without adenopathy or JVD. The patient has significant pathological findings consistent with chronic psoriatic arthritis and arthritic changes to her hands with ulnar deviations. MUSCULOSKELETAL: Without significant scoliosis, kyphosis or lordosis. Has some tenderness in the lumbar spine area. IMPRESSION: 1. Chronic arthritic changes as a result of psoriatic arthritis and osteoarthritis. 2. Right ankle pain. 3. Low back pain. 4. Management of pain with high dose opioid medications. RECOMMENDATIONS: We discussed treatment options with the patient. At this juncture, she feels her medications are helpful. She is aware that opioid medications can only provide a certain amount of relief. She is aware that some patients have become addicted to these medications. The patient has not show any signs of addiction. She has taken her medication as prescribed. She is not receiving medications from other sources. At this juncture, we will continue with her medications. A script for her medications has been rewritten. We will continue with 15 mg morphine 1 p.o. b.i.d. The patient has been given a script for 2 months of this medication. She will also continue with hydrocodone 5/325 one p.o. t.i.d. to q.i.d. 100 tablets have been provided. She will call us if she has any concerns. The patient will also continue with tramadol, which she finds somewhat helpful. She will continue with these medications p.r.n. pain, 1 p.o. b.i.d. We would like to thank you for letting us participate in her care. She will call us if she has any concerns. <ELECTRONICALLY SIGNED> By: Sal Silverman MD 08/14/19 1647 [id number] 1425 Sal Silverman MD /VINNIE
== END ==
LOC: PAIN 06:44
DX: Z76.0 Encounter for issue of repeat prescription (principal); L40.59 Other psoriatic arthropathy; M25.571 Pain in right ankle and joints of right foot; M54.5 Low back pain; I10 Essential (primary) hypertension; Z88.0 Allergy status to penicillin; Z88.1 Allergy status to other antibiotic agents; Z79.891 Long term (current) use of opiate analgesic; Z79.899 Other long term (current) drug therapy

== ENCOUNTER → 2019-09-27 | Outpatient (CLI) | payer OTHER ==
[~2019-09-27] VITALS: Ht 175.3 cm; Wt 85.7 kg
[~2019-09-27] MED LIST changes: +LEFLUNOMIDE 1010 MG PO; +ZANAFLEX4 M2 PO
[2019-09-27 10:50] VITALS: BP 162/80
--- NOTE | 2019-09-27 10:51 | NUR ---
Pain Clinic Assessment: 1. History of Osteoarthritis: PSORIATIC all joint History of Rheumatoid Arthritis: psoriatic 2. Height: 5 ft. 9 in. 175.3 cm. Weight: 189.0 lb. oz. 85.730 kg. Patient's BMI: 27.9 3. Vital Signs: BP: 162/80 Pulse: 76 Resp: 14 Temp: 02 Sat: 98 ECG Mon: 4. Pain Intensity: 7 5. Fall Risk: Dizziness: N Needs help standing or walking: N Fallen in the last 3 months: N Fall risk comments: 6. Patient on Blood Thinner: None 7. History of Hypertension: Y 8. Opioid Therapy greater than 6 weeks: Y Opiate Contract Signed: 09/04/17 9. Risk Assessment Tool Provided: LOW RISK-0 10. Functional Assessment Tool: 58/70 11. Recreational Drug Use: Never Drug Type: Tobacco Use: Never Smoker Tobacco Type: Amount or Packs/day: How Many Years: Alcohol Use: Yes Frequency: Quant:
--- NOTE | 2019-10-08 10:01 | HPC ---
[facility] [place] [address] PAIN MANAGEMENT CONSULTATION Name: MILA HWANG Room #: REG [facility].Dasia.#: [id number] Admission: 09/27/19 Attend Phys: Sal Silverman MD Discharge: Date of : 63 Report #: [id number] THIS REPORT FOR: cc: Adelso Tran Ryan D. DO Brown, N. Wayne MD ~ CC: Sal Tran DO DATE OF SERVICE: 09/27/2019 CHIEF COMPLAINT: Here for medication. I had a flare-up of atrial fibrillation. HISTORY: The patient is a 54-year-old female who has been followed in the pain clinic because of chronic pain. She suffers from debilitating rheumatoid arthritis. She has had significant arthritic changes involving her hands and feet. She rates her pain today as 7/10. She has returned today for renewal of her medication. States that she had a flare-up of her atrial fibrillation. She notes that she continues to have pain in her ribs, right hip, and virtually all joints. Her right ankle is problematic as well. While standing and walking, she notes some worsening of her pain. She experiences increased discomfort with changes in the weather. She has returned today for renewal of her medications. ALLERGIES: PENICILLIN, TETRACYCLINE. CURRENT MEDICATIONS: Morphine sulfate 15 mg b.i.d., hydrocodone 5/325, Celebrex 200 mg, tizanidine 4 mg t.i.d., Cardizem 120 mg daily, Humira, Advil p.r.n., and prednisone 5 mg daily. PAIN CLINIC ASSESSMENT/PQRS: 1. The patient is being treated for psoriatic arthritis, has multiple joint areas. The patient does have some osteoarthritic changes. 2. Height 5 feet 9 inches, weight 189 pounds, BMI is 27.9. 3. Vital signs: Blood pressure 162/80, pulse 76, respiratory rate 14, room air saturation 98%. 4. Pain intensity 01/30. 5. Fall history: The patient has not fallen in the last 3 months. 6. Blood thinner. The patient is not on a blood thinning medication. 7. Hypertension. The patient is being treated for hypertension. 8. Opioids greater than 6 weeks. The patient received medication from one source the pain clinic. 9. Risk assessment tool, low for opioid use. 10. Functional assessment tool 58/70. 11. Recreational drug use: The patient denies. 12. Tobacco: The patient has never smoked. [address] [address] PAIN MANAGEMENT CONSULTATION Name: MILA HWANG Room #: REG [facility]#: [id number] Admission: 09/27/19 Attend Phys: Sal Silverman MD Discharge: Date of : 63 Report #: [id number] 13. Alcohol: The patient occasionally drinks alcoholic beverages. PHYSICAL EXAMINATION: GENERAL: The patient is a well-developed, well-nourished white female. Appears her stated age. She is alert and oriented x 3. Her affect is appropriate. Speech is fluent. HEENT: Normocephalic, atraumatic. Extraocular eye muscles intact. Sclerae nonicteric. Mucous membranes are moist. HEART: Regular rate today. ABDOMEN: Nontender. MUSCULOSKELETAL: Without significant scoliosis, kyphosis, or lordosis. Has tenderness in her hip area. IMPRESSION: 1. Chronic arthritic changes as a result of psoriatic arthritis and osteoarthritis. 2. Right ankle pain. 3. Low back pain. 4. Management of pain with high dose opioid medications. RECOMMENDATIONS: We discussed treatment options with the patient. Risks and benefits of the procedure again were discussed. The patient feels overall that these medications continue to be beneficial. She has taken them as prescribed. She is having no complications. She is thinking clearly. She is not having any problems with mentation. We will continue with her medications. We will provide a script with morphine 15 mg 1 p.o. b.i.d. The patient will also continue with hydrocodone 5/325 one p.o. t.i.d. to q.i.d. 100 tablets have been provided. The patient will call us if she has any concerns. She will continue with tramadol to take as a breakthrough. We would like to thank you for letting us participate in her care. We hope she continues to improve. <ELECTRONICALLY SIGNED> By: Sal Silverman MD 10/08/19 1001 0900 1417 Sal Silverman MD /VINNIE
== END ==
LOC: PAIN 06:51
DX: G89.29 Other chronic pain (principal); M19.90 Unspecified osteoarthritis, unspecified site; M54.5 Low back pain; M25.571 Pain in right ankle and joints of right foot; L40.50 Arthropathic psoriasis, unspecified; I48.91 Unspecified atrial fibrillation; Z88.0 Allergy status to penicillin; Z88.8 Allergy status to other drugs, medicaments and biological substances; Z68.27 Body mass index [BMI] 27.0-27.9, adult; Z79.891 Long term (current) use of opiate analgesic; Z79.899 Other long term (current) drug therapy

== ENCOUNTER → 2019-11-22 | Outpatient (CLI) | payer OTHER ==
[~2019-11-22] VITALS: Ht 175.3 cm; Wt 86.9 kg
[2019-11-22 10:43] VITALS: BP 149/90
--- NOTE | 2019-11-22 10:51 | NUR ---
Pain Clinic Assessment: 1. History of Osteoarthritis: PSORIATIC all joint History of Rheumatoid Arthritis: psoriatic 2. Height: 5 ft. 9 in. 175.3 cm. Weight: 191.6 lb. oz. 86.909 kg. Patient's BMI: 28.3 3. Vital Signs: BP: 149/90 Pulse: 72 Resp: 18 Temp: 02 Sat: 98 ECG Mon: 4. Pain Intensity: 6 5. Fall Risk: Dizziness: N Needs help standing or walking: N Fallen in the last 3 months: N Fall risk comments: 6. Patient on Blood Thinner: None 7. History of Hypertension: Y 8. Opioid Therapy greater than 6 weeks: Y Opiate Contract Signed: 09/04/17 9. Risk Assessment Tool Provided: LOW RISK-0 10. Functional Assessment Tool: 58/70 11. Recreational Drug Use: Never Drug Type: Tobacco Use: Never Smoker Tobacco Type: Amount or Packs/day: How Many Years: Alcohol Use: Yes Frequency: Quant:
--- NOTE | 2019-11-25 08:57 | HPC ---
[facility] [place] [address] PAIN MANAGEMENT CONSULTATION Name: MILA HWANG Room #: REG [facility].Dasia.#: [id number] Admission: 11/22/19 Attend Phys: Anahi Gunn Discharge: Date of : 63 Report #: [id number] THIS REPORT FOR: cc: Adelso Tran Ryan D. DO Hocker, Amanda CNS ~ CC: Osito Silverman MD DATE OF SERVICE: 11/22/2019 CHIEF COMPLAINT: Rheumatoid arthritis. HISTORY OF PRESENT ILLNESS: This is a 54-year-old female who returns to the pain clinic today for refill of her opioid medications. She believes that she is doing quite well on her current regimen. She is taking morphine 15 mg twice a day as well as hydrocodone throughout the day, but she has changed how she takes her tramadol taking currently 2 tablets in the morning and none the rest of the day, she believes that this has greatly improved her overall pain control. She is always worse with her pain in the morning due to all of her arthritic changes, that are most specifically in her low back and all of her hip joints and she feels that this has been beneficial. Today, she is rating a pain score of 6/10. She has aching, throbbing pain, worse with standing and walking and again first in the morning or weather changes. She feels the medication allows her to be as active as she is able with limited side effects. ALLERGIES: PENICILLIN AND TETRACYCLINE. CURRENT MEDICATIONS: Morphine sulfate 15 mg b.i.d., hydrocodone 5/325, Celebrex, tizanidine, Cardizem, Humira, Advil and prednisone. PQRS: 1. The patient has psoriatic arthritis and is treated for this in multiple joints as well as arthritic changes. 2. Height is 5 feet 9 inches, weight is 191, BMI is 28. 3. Vital signs, blood pressure 149/90, pulse is 72, respirations 18, oxygen sat is 98. 4. Pain score is 6/10. 5. Denies dizziness, does not need help with walking or standing, has not fallen in the last 3 months. 6. The patient is not on any blood thinners, but does take medicine for hypertension. Opioid therapy is greater than 6 weeks; therefore, an opioid signed contract is on the chart. Risk assessment tool is low. Functional assessment is 58/70. 7. Recreational drug use, she denies. She is not a smoker and occasionally drinks alcohol. [address] [address] PAIN MANAGEMENT CONSULTATION Name: MILA HWANG ANITA Room #: REG [facility]..#: [id number] Admission: 11/22/19 Attend Phys: Anahi Gunn Discharge: Date of : 63 Report #: [id number] According to the prescription monitoring system, the patient is filling appropriately in a timely fashion. She is due to fill her medications in a couple of days. According to the CDC guidelines, her morphine mEq per day is 60 MMEs. PHYSICAL EXAMINATION: GENERAL: This is a well-developed, well-nourished white female who appears her stated age, placing her current pain score at 6/10. She has appropriate affect. HEENT: Normocephalic, atraumatic. Extraocular eye muscles are intact. Mucous membranes are moist. MUSCULOSKELETAL: She is without significant scoliosis, kyphosis or lordosis. She has tenderness in her lower back and pain in tenderness in multiple joints consistent with her psoriatic arthritis. IMPRESSION: 1. Chronic arthritic changes as a result of psoriatic arthritis and osteoarthritis. 2. Right ankle pain. 3. Low back pain. 4. Management of high risk medications under terms of written opioid agreement. PLAN: 1. We discussed treatment options with the patient today. The patient finds her medications very beneficial, taking them as prescribed; though, she has altered her tramadol slightly taking 2 pills in the morning. We have allowed her 2 pills throughout the day, so she does not take more than her allotted dosage. She feels that altering how she takes and has been very beneficial. 2. We will refill her morphine 15 mg tablets, #60 for today and 4 weeks supply. Hydrocodone 5/325 t.i.d., #100 and tramadol 50 mg, #60 with one additional refill. 3. I will refill her tizanidine #90 of 4 mg tablets with 5 additional refills for a total of 6 months. 4. The patient is seen today in collaboration with Dr. Spike Silverman. The patient will return in 2 months for medication refill. <ELECTRONICALLY SIGNED> By: Anahi Gunn 11/25/19 0857 1130 1202 Anahi Gunn /cary
== END ==
LOC: PAIN 07:21
DX: M06.9 Rheumatoid arthritis, unspecified (principal); M25.571 Pain in right ankle and joints of right foot; M54.5 Low back pain; F11.20 Opioid dependence, uncomplicated; Z88.0 Allergy status to penicillin; Z88.8 Allergy status to other drugs, medicaments and biological substances; Z79.899 Other long term (current) drug therapy

== ENCOUNTER → 2020-01-20 | Outpatient (CLI) | payer OTHER ==
[~2020-01-20] VITALS: Ht 175.3 cm; Wt 88.5 kg
[2020-01-20 10:26] VITALS: BP 160/93
--- NOTE | 2020-01-20 10:33 | NUR ---
Pain Clinic Assessment: 1. History of Osteoarthritis: PSORIATIC all joint History of Rheumatoid Arthritis: psoriatic 2. Height: 5 ft. 9 in. 175.3 cm. Weight: 195.0 lb. oz. 88.452 kg. Patient's BMI: 28.8 3. Vital Signs: BP: 160/93 Pulse: 69 Resp: 15 Temp: 02 Sat: 98 ECG Mon: 4. Pain Intensity: 6 5. Fall Risk: Dizziness: N Needs help standing or walking: N Fallen in the last 3 months: N Fall risk comments: 6. Patient on Blood Thinner: None 7. History of Hypertension: Y 8. Opioid Therapy greater than 6 weeks: Y Opiate Contract Signed: 09/04/17 9. Risk Assessment Tool Provided: LOW RISK-0 10. Functional Assessment Tool: 58/70 11. Recreational Drug Use: Never Drug Type: Tobacco Use: Never Smoker Tobacco Type: Amount or Packs/day: How Many Years: Alcohol Use: Yes Frequency: Monthly Quant:
--- NOTE | 2020-01-22 12:21 | HPC ---
[facility] [place] [address] PAIN MANAGEMENT CONSULTATION Name: MILA HWANG Room #: REG [facility] M.R.#: [id number] Admission: 01/20/20 Attend Phys: Anahi Gunn Discharge: Date of : 63 Report #: [id number] THIS REPORT FOR: cc: Adelso Tran Ryan D. DO Hocker, Amanda CNS ~ CC: Marlen Silverman MD DATE OF SERVICE: 01/20/2020 CHIEF COMPLAINT: Psoriatic arthritis, chronic back pain. HISTORY OF PRESENT ILLNESS: This is a 54-year-old female who is well known to our clinic for her ongoing pain issues from her psoriatic arthritis as well as her ongoing low back pain. She does have right ankle pain as well. Today, she is complaining of painful joints. She had stopped her Humira and is going to try Dulera, though she has not started that at this present time due to insurance issues, so she has been without her medicine for about a month. She has increased her prednisone dose, but still is reporting a pain score slightly higher at 6/10 today. She states it is an aching, throbbing pain that is worse with any activity and weather changes. Her opioid medications are beneficial as well as heat and ice. She denies any problems with daytime somnolence or constipation issues. ALLERGIES: PENICILLIN and TETRACYCLINE. CURRENT LIST OF MEDICATIONS: Tramadol 50 mg b.i.d., hydrocodone 5/325, MS Contin 15 mg b.i.d., tizanidine, Celebrex, Cardizem, Excedrin Migraine, prednisone, and Stelara. PQRS: 1. She has a history of osteoarthritis in multiple joints as well as psoriatic arthritis and being treated for both. Height is 5 feet 9 inches, weight is 195, BMI is 28. 2. Vital signs 160/93, pulse is 69, respirations 15, oxygen sat is 98. 3. Pain score 6/10. 4. Denies dizziness, does not need help walking or standing, has not fallen in the last 3 months. 5. The patient is not on any blood thinners, but does take medicine for hypertension. Her opioid therapy is greater than 6 weeks; therefore, an opioid signed contract is on the chart. Risk assessment tool is low. Functional assessment is 58/70. 6. Recreational drug use, she denies. She is not a smoker and does drink alcohol. According to the prescription monitoring system, the patient is filling [address] [address] PAIN MANAGEMENT CONSULTATION Name: MILA HWANG ANITA Room #: REG [facility] ..#: [id number] Admission: 01/20/20 Attend Phys: Anahi Gunn Discharge: Date of : 63 Report #: [id number] appropriately. Her morphine milliequivalent per day is 55 according to the CDC guidelines. There is a drug screen on the chart that was appropriate for her medications last year. We will check them again later this year. PHYSICAL EXAMINATION: GENERAL: This is a well-developed, well-nourished white female who appears her stated age of 54, rating her pain score today at 6/10. Her affect is appropriate. She is answering questions completely. HEENT: Normocephalic, atraumatic. Extraocular eye muscles are intact. She is wearing a mask. MUSCULOSKELETAL: She is without significant scoliosis, kyphosis or lordosis. She has tenderness in her bilateral shoulders that radiates up into her neck with multiple trigger points, complains of pain in her right ankle with movement. She has tenderness also in her low back. IMPRESSION: 1. Chronic arthritic changes as a result of psoriatic arthritis and osteoarthritis. 2. Right ankle pain. 3. Bilateral shoulder and neck pain and multiple trigger points. 4. Low back pain. 5. Management of high risk medications under terms of written opioid agreement. We reviewed the fact that opiate medications are being used to provide analgesia adequate to support activities of daily living, not attempting to achieve a specific pain score on the 0-10 Visual Analog Scale. The current opiate medications are providing sufficient analgesia to allow the patient to participate in activities of daily living. The patient is not exhibiting any aberrant behavior suggestive of drug diversion. The patient is not having any adverse reactions to medications. The patient is not suffering from daytime somnolence or mental acuity changes. The patient is managing opiate-induced constipation with appropriate gvij-pdd-drlwzmi agents and dietary considerations. The patient was counseled on concern for caution with operating a motor vehicle while using opiate medications. PLAN: 1. We discussed treatment options with the patient today. The patient discussed medical marijuana. She has been speaking with some providers that will give her a green card. I did offer her a card for [facility] doctor as well to consider medical marijuana. I instructed her that we would decrease her off her opioids if she did start using medical marijuana and finds that it has been beneficial. The patient states she has not started the process yet. She wanted to speak with us first. I explained that we would decrease her off her long-acting, then off short-acting, while she is using the medical marijuana. 2. Scripts written today for morphine sulfate 15 mg, #60 for today and 4-week supply. Hydrocodone 5/325, #100 for today and 4-week supply and tramadol [address] [address] PAIN MANAGEMENT CONSULTATION Name: MILA HWANG Room #: [facility] DI Reid#: [id number] Admission: 01/20/20 Attend Phys: Anahi Gunn Discharge: Date of : 63 Report #: [id number] mg, #60 with one additional refill. 3. The patient is not needing her tizanidine. She finds this very beneficial in helping her neck pain and shoulder pain when she has significant muscle spasms. 4. The patient is seen today in collaboration with Dr. Spike Silverman. The patient will return in 2 months. At that time, we will discuss tapering opioid medications if she has decided to start using medical marijuana. <ELECTRONICALLY SIGNED> By: Anahi Gunn 01/22/20 1221 [id number] [id number] Anahi Gunn /cary
== END ==
LOC: PAIN 06:56
PROVIDERS: ATTEND Clinical Nurse Specialist Adult Health
DX: M54.5 Low back pain (principal); L40.52 Psoriatic arthritis mutilans; M25.571 Pain in right ankle and joints of right foot; M25.511 Pain in right shoulder; M25.512 Pain in left shoulder; M54.2 Cervicalgia; F11.20 Opioid dependence, uncomplicated; Z88.8 Allergy status to other drugs, medicaments and biological substances; Z79.899 Other long term (current) drug therapy

== ENCOUNTER → 2020-03-18 | Outpatient (CLI) | payer OTHER ==
[~2020-03-18] VITALS: Ht 175.3 cm; Wt 89.8 kg
[~2020-03-18] MED LIST changes: +FOSAMAX 70 MG T70 MG PO
[2020-03-18 09:52] VITALS: BP 153/88
--- NOTE | 2020-03-18 09:54 | NUR ---
Pain Clinic Assessment: 1. History of Osteoarthritis: PSORIATIC all joint History of Rheumatoid Arthritis: psoriatic 2. Height: 5 ft. 9 in. 175.3 cm. Weight: 198.0 lb. oz. 89.812 kg. Patient's BMI: 29.2 3. Vital Signs: BP: 153/88 Pulse: 74 Resp: 16 Temp: 02 Sat: 97 ECG Mon: 4. Pain Intensity: 5 5. Fall Risk: Dizziness: N Needs help standing or walking: N Fallen in the last 3 months: N Fall risk comments: 6. Patient on Blood Thinner: None 7. History of Hypertension: Y 8. Opioid Therapy greater than 6 weeks: Y Opiate Contract Signed: 09/04/17 9. Risk Assessment Tool Provided: LOW RISK-0 10. Functional Assessment Tool: 11. Recreational Drug Use: Never Drug Type: Tobacco Use: Never Smoker Tobacco Type: Amount or Packs/day: How Many Years: Alcohol Use: Yes Frequency: Quant:
--- NOTE | 2020-03-19 12:28 | HPC ---
[facility] [place] [address] PAIN MANAGEMENT CONSULTATION Name: MILA HWANG Room #: REG [facility] M.R.#: [id number] Admission: 03/18/20 Attend Phys: Anahi Gunn Discharge: Date of : 63 Report #: [id number] THIS REPORT FOR: cc: Osito Baker MD, Todd MD Hocker,Anahi BLOOD ~ CC: Marlen Silverman MD DATE OF SERVICE: 03/18/2020 CHIEF COMPLAINT: Psoriatic arthritis, chronic back pain. HISTORY OF PRESENT ILLNESS: This is a 54-year-old female who is very pleasant. She has been a longstanding patient of Dr. Silverman's, here in the clinic for her ongoing psoriatic arthritic pain as well as low back pain. Today, she is here requesting refills of her medications. She states she is having a good day today. Her pain is a 5/10, aching, throbbing tenderness in her joints as well as her low back, more specifically on her right side into her right hip. She does state that walking and standing are more problematic, but feels that the medication regimen is working quite well. She has been awaiting a new arthritis medicine to be started. She has been having problems getting this covered by her insurance, so hopeful to restart a medicine prior to her next visit. ALLERGIES: PENICILLIN AND TETRACYCLINE. CURRENT LIST OF MEDICATIONS: Fosamax, tramadol 50 mg b.i.d. p.r.n., morphine sulfate 15 mg b.i.d., hydrocodone 5/325 p.r.n., tizanidine, Celebrex, diltiazem, aspirin, prednisone 15 mg. PQRS: 1. She has a history of psoriatic arthritis in all joints and is being treated for that. 2. Height is 5 feet 9 inches, weight is 198, BMI is 29. 3. Vital signs; blood pressure 153/88, pulse is 74, respirations 16, oxygen sat is 97%. 4. Pain score is 5/10. 5. Denies dizziness, does not need help walking or standing, has not fallen in the last 3 months. 6. The patient is not on any blood thinners, but does take medicine for hypertension. 7. Opioid therapy is greater than 6 weeks; therefore, an opioid signed contract is on the chart. Risk assessment tool is low. Functional assessment is 52/70. 8. Recreational drug use, she denies. She is not a smoker and occasionally drinks alcohol. According to the prescription monitoring system, the patient is filling [address] [address] PAIN MANAGEMENT CONSULTATION Name: MILA HWANG ANITA Room #: REG [facility].#: [id number] Admission: 03/18/20 Attend Phys: Anahi Gunn Discharge: Date of : 63 Report #: [id number] appropriately. She is due to fill her medications this week. Her morphine milliequivalent according to the CDC guidelines is 60 MME. We will check a random drug screen on this patient today. PHYSICAL EXAMINATION: GENERAL: This is alert and orientated 54-year-old female who is a good historian, placing her current pain score at 5/10 today. HEENT: Normocephalic, atraumatic. Extraocular eye muscles are intact. She is wearing a mask. Sclerae are nonintrinsic. MUSCULOSKELETAL: She is without significant scoliosis, kyphosis or lordosis. She has significant changes in her hands associated with her arthritis. Muscle strength in her lower extremity is judged to be 5/5 in all major muscle groups. She has multiple bruising noted on her arms and psoriatic plaque lesions on her lower extremities today. She has an antalgic gait. Lumbar flexion is limited. IMPRESSION: 1. Chronic arthritic changes as a result of her psoriatic arthritis and osteoarthritis. 2. Right ankle pain. 3. Bilateral shoulder and neck pain with multiple trigger points. 4. Low back pain. 5. Management of high risk medications under terms of written opioid agreement. We reviewed the fact that opiate medications are being used to provide analgesia adequate to support activities of daily living, not attempting to achieve a specific pain score on the 0-10 Visual Analog Scale. The current opiate medications are providing sufficient analgesia to allow the patient to participate in activities of daily living. The patient is not exhibiting any aberrant behavior suggestive of drug diversion. The patient is not having any adverse reactions to medications. The patient is not suffering from daytime somnolence or mental acuity changes. The patient is managing opiate-induced constipation with appropriate esel-ioh-xdkkepg agents and dietary considerations. The patient was counseled on concern for caution with operating a motor vehicle while using opiate medications. A physical exam was performed and the patient's functional status was evaluated. All patients with back pain were advised against the bed rest greater than 4 days and were advised to return to normal activities. Pain score assessment was noted and the treatment plan was reviewed with the patient. All current medications, both prescribed and OTC were reviewed and reconciled on the electronic medical record. Tobacco screening was accomplished and smoking cessation was advised when indicated. BMI was noted and diet/exercise modification was recommended for all patients following outside normal parameters. I reviewed with the patient today their responsibilities [facility] [address] [address] PAIN MANAGEMENT CONSULTATION Name: MILA HWANG [facility] [id number] Admission: 03/18/20 Attend Phys: Anahi Gunn Discharge: Date of : 63 Report #: [id number] prescription medications, reviewed their responsibility to utilize medications only as prescribed by the physician. They are to seek and receive pain medications only from 1 physician group ( [facility]). They are to use 1 pharmacy and keep the clinic informed if they change pharmacies. Their responsibilities include making followup visits in a timely fashion and to avoid abrupt discontinuation of medication usage. Their responsibilities further include bringing their medications (bottles from the pharmacy with residual pills) to the visit for possible confirmation of pill counts and the patient understands it is their responsibility to submit to random drug screens to ensure both that the medications prescribed are present, and that no other controlled substances are present. All prescriptions provided today were generated electronically. PLAN: 1. We discussed treatment options with the patient today. The patient tells me most days, she is only requiring 2-3 hydrocodone a day. We discussed decreasing the amount that she gets per month. We will do this at her next visit to 90 tablets. At that time, she should have started her new psoriatic arthritis medicine and the patient feels more comfortably decreasing her dose at that time. Today, we will have Dr. Drake Silverman send 100 tablets of her hydrocodone 5/325. 2. We will continue her on her morphine sulfate 15 mg b.i.d., #60 for today and 4-week supply and her tramadol 50 mg, #60 with one additional refill. 3. We will collect a random drug screen, urine specimen on this patient today. 4. We did discuss medical marijuana briefly. The patient has not sought any information about this further. She has been busy with other health issues for her and her family and has not done further research. 5. The patient is seen in collaboration today with Dr. Spike Silverman who did see the patient as well. <ELECTRONICALLY SIGNED> By: Anahi Gunn 03/19/20 1228 [id number] [id number] Anahi Gunn /nt
== END ==
LOC: PAIN 06:48
PROVIDERS: ATTEND Clinical Nurse Specialist Adult Health
DX: L40.59 Other psoriatic arthropathy (principal); G89.29 Other chronic pain; M25.511 Pain in right shoulder; M25.512 Pain in left shoulder; Z79.891 Long term (current) use of opiate analgesic

== ENCOUNTER → 2020-05-15 | Outpatient (CLI) | payer OTHER ==
[~2020-05-15] VITALS: Ht 175.3 cm; Wt 90.7 kg
[~2020-05-15] MED LIST changes: +LEXAPRO 10 MG T10 M2 PO
[2020-05-15 09:27] VITALS: BP 155/82
--- NOTE | 2020-05-15 09:42 | NUR ---
Pain Clinic Assessment: 1. History of Osteoarthritis: PSORIATIC all joint History of Rheumatoid Arthritis: psoriatic 2. Height: 5 ft. 9 in. 175.3 cm. Weight: 200.0 lb. oz. 90.720 kg. Patient's BMI: 29.5 3. Vital Signs: BP: 155/82 Pulse: 84 Resp: 16 Temp: 02 Sat: 99 ECG Mon: 4. Pain Intensity: 6.5 5. Fall Risk: Dizziness: N Needs help standing or walking: N Fallen in the last 3 months: N Fall risk comments: 6. Patient on Blood Thinner: None 7. History of Hypertension: Y 8. Opioid Therapy greater than 6 weeks: Y Opiate Contract Signed: 09/04/17 9. Risk Assessment Tool Provided: LOW RISK-0 10. Functional Assessment Tool: 11. Recreational Drug Use: Never Drug Type: Tobacco Use: Never Smoker Tobacco Type: Amount or Packs/day: How Many Years: Alcohol Use: Yes Frequency: Monthly Quant: 1
--- NOTE | 2020-05-18 09:37 | HPC ---
[facility] [place] [address] PAIN MANAGEMENT CONSULTATION Name: MILA HWANG Room #: REG DI MDouglas.#: [id number] Admission: 05/15/20 Attend Phys: Anahi Gunn Discharge: Date of : 63 Report #: [id number] CC: Anahi Baker DATE OF SERVICE: 05/15/2020 CHIEF COMPLAINT: Psoriatic arthritis and chronic back pain. HISTORY OF PRESENT ILLNESS: This is a very pleasant 54-year-old female who returns to the pain clinic today for refills of her medications. She is reporting an increase in pain, mostly due to weather changes and not being able to obtain her biologic medication that she uses for her psoriatic arthritis. Today, she is reporting most significantly pain in her hands as well as in her low back and right hip. Despite this increase in her pain, she would like to decrease her hydrocodone, which we had talked about at previous visits. The patient states that she has found that she does take 2-3 tablets a day, not 3-4; therefore, she is requesting 90 tablets of that medication today. She does continue on her morphine and tramadol. She is hopeful to be able to decrease her tramadol in the future as well. The patient denies any problems with constipation as a result of her medication that is not managed with blad-pio-pliycgz meds. The patient does report that she has increased her prednisone to 20 mg a day due to the fact that she has not been able to obtain her biologic. She is in part of a [place], which she was supposed to get her medications for free. She is going to call the insurance company again today and see where she is on the list for obtaining that medication. She is aware that once she is able to start that medication again, she will be able to have her pain better controlled. She also reports that she has gained weight since her prednisone use has increased. Today, her weight is 200. At her visit 3 months ago, it was 189. ALLERGIES: PENICILLIN AND TETRACYCLINE. CURRENT LIST OF MEDICATIONS: Lexapro 10 mg daily, tramadol 50 mg b.i.d., MS Contin 15 mg b.i.d.; hydrocodone 5/325, 2-3 times a day; Fosamax, tizanidine, Celebrex, Cardizem, Excedrin Migraine, prednisone 20 mg. PQRS: 1. She does suffer from psoriatic arthritis as well as diffuse osteoarthritis. 2. Height is 5 feet 9 inches, weight is 200, BMI is 29. 3. Vital signs 155/82, pulse is 84, respirations 16, oxygen sat is 99. 4. Pain score is 6-1/2. 5. Denies dizziness. Does not need assistance with ambulation. Has not fallen in the last 3 months. 6. The patient is not on any blood thinners, but does take medicine for hypertension. Her opioid therapy is greater than 6 weeks; therefore, an opioid signed contract is on the chart. Risk assessment is low. Functional assessment is 52/70. 7. Recreational drug use, she denies. She is not a smoker and occasionally drinks alcohol. According to the prescription monitoring system, the patient is filling appropriately from Dr. Silverman in a timely fashion. She is due to fill all of her medications today. Her morphine mEq is 55 morphine mEq, but we will decrease this to 6 to hopefully 50 with a decrease in her hydrocodone; therefore, she will be able to come at a 3-month interval in her next appointment. PHYSICAL EXAMINATION: GENERAL: This is alert and orientated 54-year-old female who is a good historian, placing her current pain score at 6-1/2. She is well-developed, well-nourished. HEENT: Normocephalic, atraumatic. Extraocular eye muscles are intact. She is wearing a mask. MUSCULOSKELETAL: She is without significant scoliosis, kyphosis or lordosis. She does have significant arthritic changes in her hands bilaterally with significant pain with movement. She has psoriatic plaque lesions on her lower extremities bilaterally. Tenderness in her lumbosacral region with no radicular symptoms. Her flexion of her lumbar spine is limited. Her upper and lower extremity strength is symmetrical at 5/5. IMPRESSION: 1. Chronic arthritic changes as a result of her psoriatic arthritis and osteoarthritis. 2. Right ankle pain. 3. Bilateral shoulder pain due to osteoarthritis. 4. Low back pain. 5. Management of high risk medications under terms of written opioid agreement. We reviewed the fact that opiate medications are being used to provide analgesia adequate to support activities of daily living, not attempting to achieve a specific pain score on the 0-10 Visual Analog Scale. The current opiate medications are providing sufficient analgesia to allow the patient to participate in activities of daily living. The patient is not exhibiting any aberrant behavior suggestive of drug diversion. The patient is not having any adverse reactions to medications. The patient is not suffering from daytime somnolence or mental acuity changes. The patient is managing opiate-induced constipation with appropriate ynjl-odv-idksqyi agents and dietary considerations. The patient was counseled on concern for caution with operating a motor vehicle while using opiate medications. A physical exam was performed and the patient's functional status was evaluated. All patients with back pain were advised against the bed rest greater than 4 days and were advised to return to normal activities. Pain score assessment was noted and the treatment plan was reviewed with the patient. All current medications, both prescribed and OTC were reviewed and reconciled on the electronic medical record. Tobacco screening was accomplished and smoking cessation was advised when indicated. BMI was noted and diet/exercise modification was recommended for all patients following outside normal parameters. I reviewed with the patient today their responsibilities to safeguard prescription medications, reviewed their responsibility to utilize medications only as prescribed by the physician. They are to seek and receive pain medications only from 1 physician group ([facility]). They are to use 1 pharmacy and keep the clinic informed if they change pharmacies. Their responsibilities include making followup visits in a timely fashion and to avoid abrupt discontinuation of medication usage. Their responsibilities further include bringing their medications (bottles from the pharmacy with residual pills) to the visit for possible confirmation of pill counts and the patient understands it is their responsibility to submit to random drug screens to ensure both that the medications prescribed are present, and that no other controlled substances are present. All prescriptions provided today were generated electronically. PLAN: 1. We discussed treatment options with the patient today. We will continue to decrease her hydrocodone from 5/325, #100 pills per month to 90. The patient has found that she has been able to decrease this slowly and would like to come on it every 3-month basis. If she is able to tolerate this decrease, we will have her come every 3 months due to her morphine mEq being below 50 MMEs. The patient is hopeful that she will be able to tolerate this as well as then in the future, hopefully decrease her tramadol. Scripts will be sent today for her morphine sulfate 15 mg b.i.d., #60 for today and 4-week supply as well as hydrocodone #90, and tramadol 50 mg, #60 with one additional refill from Dr. Spike Silverman. 2. We did discuss ways to try to contact her insurance company to find where she is about receiving her biologic. The patient is going to call there again today. She is hopeful she will be able to start this medication by the end of the year. 3. The patient is seen in collaboration with Dr. Silverman. The patient will return in 2 months. <ELECTRONICALLY SIGNED> By: Anahi Gunn 05/18/20 0937 [id number] Anahi Gunn /nt
== END ==
LOC: PAIN 09:12
PROVIDERS: ATTEND Clinical Nurse Specialist Adult Health
DX: M19.011 Primary osteoarthritis, right shoulder (principal); M19.012 Primary osteoarthritis, left shoulder; M19.90 Unspecified osteoarthritis, unspecified site; G89.29 Other chronic pain; L40.50 Arthropathic psoriasis, unspecified; Z79.891 Long term (current) use of opiate analgesic

== ENCOUNTER → 2020-07-10 | Outpatient (CLI) | payer OTHER ==
[~2020-07-10] VITALS: Ht 175.3 cm; Wt 89.4 kg
[2020-07-10 09:19] VITALS: BP 154/95
--- NOTE | 2020-07-10 09:32 | NUR ---
Pain Clinic Assessment: 1. History of Osteoarthritis: PSORIATIC all joint History of Rheumatoid Arthritis: psoriatic 2. Height: 5 ft. 9 in. 175.3 cm. Weight: 197.2 lb. oz. 89.449 kg. Patient's BMI: 29.1 3. Vital Signs: BP: 154/95 Pulse: 72 Resp: 20 Temp: 02 Sat: 98 ECG Mon: 4. Pain Intensity: 5 5. Fall Risk: Dizziness: N Needs help standing or walking: N Fallen in the last 3 months: N Fall risk comments: 6. Patient on Blood Thinner: None 7. History of Hypertension: Y 8. Opioid Therapy greater than 6 weeks: Y Opiate Contract Signed: 09/04/17 9. Risk Assessment Tool Provided: LOW RISK-0 10. Functional Assessment Tool: 11. Recreational Drug Use: Never Drug Type: Tobacco Use: Never Smoker Tobacco Type: Amount or Packs/day: How Many Years: Alcohol Use: Yes Frequency: Monthly Quant: 1
--- NOTE | 2020-07-13 07:40 | HPC ---
[facility] [place] [address] PAIN MANAGEMENT CONSULTATION Name: MILA HWANG ANITA Room #: REG [facility] M.R.#: [id number] Admission: 07/10/20 Attend Phys: Anahi Gunn Discharge: Date of : 63 Report #: [id number] THIS REPORT FOR: cc: Osito Baker MD, Todd MD Hocker,Anahi BLOOD ~ DATE OF SERVICE: 07/10/2020 CHIEF COMPLAINT: Psoriatic arthritis and chronic back pain. HISTORY OF PRESENT ILLNESS: This is a very pleasant 54-year-old female who returns to the pain clinic today for refill of her medications. We treat her for her ongoing low back pain that radiates into her right hip. She does have ongoing joint pain as a result of her psoriatic arthritis. The patient does report she finally restarted on a biologic of Humira. She was trying to start a new biologic of Enbrel, but insurance was not covering; therefore, she had been off any biologics for quite some time and that had increased her pain. Overall, she feels like she is doing better since starting that medicine and currently taking her morphine and hydrocodone. Today, she rates her pain a 5/10. It is a constant, aching tenderness that is worse with weather changes and prolonged standing and walking. The medications do afford her relief as well as sitting and using heat and ice. She denies significant constipation as a result of her medications. The patient reports she had COVID in the first part of May. Her daughter developed it first and passed it along to her when they were going out of town for a college visit. The patient reports she did not have any respiratory issues, just extremely tired with body aches and a fever. She believes she is mostly recovered, though occasionally has some shortness of breath with exertion. ALLERGIES: PENICILLIN AND TETRACYCLINE. CURRENT LIST OF MEDICATIONS: Tramadol 50 mg p.r.n., morphine sulfate 15 mg b.i.d., hydrocodone 5/325 t.i.d., Lexapro, Fosamax, Zanaflex, Celebrex, Cardizem, Excedrin, prednisone, and Humira. PQRS: 1. She has diffuse osteoarthritis and psoriatic arthritis that she is being treated for. 2. Height is 5 feet 9 inches, weight is 197, BMI is 29. 3. Vital signs; blood pressure 154/95, pulse is 72, respirations 20, oxygen sat is 98. 4. Pain score is 5/10. 5. Denies dizziness, does not need help walking or standing, has not fallen in the last [address] [place] [address] PAIN MANAGEMENT CONSULTATION Name: MILA HWANG ANIAT Room #: REG [facility] M.R.#: [id number] Admission: 07/10/20 Attend Phys: Anahi Gunn Discharge: Date of : 63 Report #: [id number] 6. The patient is not on any blood thinners, but does take medicine for hypertension. 7. Opioid therapy is greater than 6 weeks; therefore, an opioid signed contract is on the chart. Risk assessment is low. Functional assessment is 52/70. 8. Recreational drug use, she denies. She is not a smoker and occasionally drinks alcohol. According to the prescription monitoring system, the patient is due to fill her medications next week, filling them in a timely fashion. Her morphine milliequivalent is 55 MME with the reduction of her hydrocodone. We may consider having her extend her visits to every 3 months if she continues to do well in the next 2 months. PHYSICAL EXAMINATION: GENERAL: This is alert and orientated, well-developed, well-nourished, slightly obese 54-year-old who appears her stated age, placing her current pain score at 5/10 today. HEENT: Normocephalic, atraumatic. Extraocular eye muscles are intact. She is wearing a mask. MUSCULOSKELETAL: She was without significant scoliosis, kyphosis or lordosis. She has psoriatic plaque lesions on her lower extremities bilaterally. She has significant arthritic changes in her hands, tenderness in her lumbosacral region that radiates into her right hip today with limited flexion movement. Upper and lower extremity strength is symmetrical at 5/5. LUNGS: Diminished. No shortness of breath noted. IMPRESSION: 1. Chronic arthritic changes as a result of her psoriatic arthritis and osteoarthritis involving multiple joints. 2. Right ankle pain. 3. Bilateral shoulder pain due to osteoarthritis. 4. Low back pain. 5. Recovery from COVID-19. 6. Management of high risk medications under written opioid agreement. We reviewed the fact that opiate medications are being used to provide analgesia adequate to support activities of daily living, not attempting to achieve a specific pain score on the 0-10 Visual Analog Scale. The current opiate medications are providing sufficient analgesia to allow the patient to participate in activities of daily living. The patient is not exhibiting any aberrant behavior suggestive of drug diversion. The patient is not having any adverse reactions to medications. The patient is not suffering from daytime somnolence or mental acuity changes. The patient is managing opiate-induced constipation with appropriate adaa-nef-jlizixa agents and dietary considerations. The patient was counseled on concern for caution with operating a motor vehicle while using opiate medications. [facility] [address] [place] [address] PAIN MANAGEMENT CONSULTATION Name: MILA HWANG Room #: REG [facility]#: [id number] Admission: 07/10/20 Attend Phys: Anahi Gunn Discharge: Date of : 63 Report #: [id number] A physical exam was performed and the patient's functional status was evaluated. All patients with back pain were advised against the bed rest greater than 4 days and were advised to return to normal activities. Pain score assessment was noted and the treatment plan was reviewed with the patient. All current medications, both prescribed and OTC were reviewed and reconciled on the electronic medical record. Tobacco screening was accomplished and smoking cessation was advised when indicated. BMI was noted and diet/exercise modification was recommended for all patients following outside normal parameters. I reviewed with the patient today their responsibilities to safeguard prescription medications, reviewed their responsibility to utilize medications only as prescribed by the physician. They are to seek and receive pain medications only from 1 physician group ( [facility]). They are to use 1 pharmacy and keep the clinic informed if they change pharmacies. Their responsibilities include making followup visits in a timely fashion and to avoid abrupt discontinuation of medication usage. Their responsibilities further include bringing their medications (bottles from the pharmacy with residual pills) to the visit for possible confirmation of pill counts and the patient understands it is their responsibility to submit to random drug screens to ensure both that the medications prescribed are present, and that no other controlled substances are present. All prescriptions provided today were generated electronically. PLAN: 1. We discussed treatment options with the patient today. The patient finds her medications beneficial. She has been able to decrease her hydrocodone from 4 tablets of 5/325 to 3 finding still good pain relief. Her current morphine milliequivalent is 55 with her morphine and tramadol. We will continue to see her at 2 month increments currently, if she continues to do well with this decrease, we may consider allowing her to come every 3 months for her visits. 2. I encouraged the patient if her shortness of breath that she notices with exertion does increase to contact her primary care doctor. She is recovering from COVID. She was not tested, though her daughter was positive. The patient experienced significant symptoms. I encouraged her to have her antibodies drawn at her followup visit with her primary care doctor at the end of the year. 3. Scripts sent by Dr. Silverman for her morphine sulfate 15 mg, #60, Tramadol 50 mg, #60 with 2 refills and hydrocodone 5/325, #90. The patient is seen today in collaboration with Dr. Silverman. <ELECTRONICALLY SIGNED> By: Anahi Gunn 07/13/20 0740 [id number] Anahi Gunn /cary
== END ==
LOC: PAIN 06:51
PROVIDERS: ATTEND Clinical Nurse Specialist Adult Health
DX: L40.50 Arthropathic psoriasis, unspecified (principal); M19.011 Primary osteoarthritis, right shoulder; M19.012 Primary osteoarthritis, left shoulder; G89.29 Other chronic pain; Z79.891 Long term (current) use of opiate analgesic

== ENCOUNTER → 2020-09-11 | Outpatient (CLI) | payer OTHER ==
[~2020-09-11] VITALS: Ht 175.3 cm; Wt 90.5 kg
[2020-09-11 09:38] VITALS: BP 139/95
--- NOTE | 2020-09-11 10:01 | NUR ---
Pain Clinic Assessment: 1. History of Osteoarthritis: PSORIATIC all joint History of Rheumatoid Arthritis: psoriatic 2. Height: 5 ft. 9 in. 175.3 cm. Weight: 199.6 lb. oz. 90.538 kg. Patient's BMI: 29.5 3. Vital Signs: BP: 139/95 Pulse: 77 Resp: 16 Temp: 02 Sat: 100 ECG Mon: 4. Pain Intensity: 5 5. Fall Risk: Dizziness: N Needs help standing or walking: N Fallen in the last 3 months: N Fall risk comments: 6. Patient on Blood Thinner: None 7. History of Hypertension: Y 8. Opioid Therapy greater than 6 weeks: Y Opiate Contract Signed: 09/04/17 9. Risk Assessment Tool Provided: LOW RISK-0 10. Functional Assessment Tool: 11. Recreational Drug Use: Never Drug Type: Tobacco Use: Former Smoker Tobacco Type: Amount or Packs/day: How Many Years: Alcohol Use: Yes Frequency: Monthly Quant: 1
== END ==
LOC: PAIN 06:50
PROVIDERS: ATTEND Anesthesiology Pain Medicine
DX: M25.571 Pain in right ankle and joints of right foot (principal); M25.572 Pain in left ankle and joints of left foot; M25.551 Pain in right hip; M19.90 Unspecified osteoarthritis, unspecified site; M54.5 Low back pain; M19.011 Primary osteoarthritis, right shoulder; M19.012 Primary osteoarthritis, left shoulder; Z87.891 Personal history of nicotine dependence; Z79.899 Other long term (current) drug therapy

== ENCOUNTER → 2020-11-11 | Outpatient (CLI) | payer OTHER ==
[~2020-11-11] VITALS: Ht 175.3 cm; Wt 89.3 kg
[~2020-11-11] MED LIST changes: +B12 ACTIVE1000 MCG PO; +CARDIZEM LA240 M1 PO; +IRON325 M1 PO; +PROTONIX 20 MG20 M1 PO; +TIZANIDINE HCL4 M2 PO; +VITAMIN C500 M2 PO
[2020-11-11 09:26] VITALS: BP 146/82
--- NOTE | 2020-11-11 09:45 | NUR ---
Pain Clinic Assessment: 1. History of Osteoarthritis: PSORIATIC all joint History of Rheumatoid Arthritis: psoriatic 2. Height: 5 ft. 9 in. 175.3 cm. Weight: 196.8 lb. oz. 89.268 kg. Patient's BMI: 29.0 3. Vital Signs: BP: 146/82 Pulse: 70 Resp: 18 Temp: 02 Sat: 97 ECG Mon: 4. Pain Intensity: 5 5. Fall Risk: Dizziness: N Needs help standing or walking: N Fallen in the last 3 months: N Fall risk comments: 6. Patient on Blood Thinner: None 7. History of Hypertension: Y 8. Opioid Therapy greater than 6 weeks: Y Opiate Contract Signed: 09/04/17 9. Risk Assessment Tool Provided: LOW RISK-0 10. Functional Assessment Tool: 11. Recreational Drug Use: Never Drug Type: Tobacco Use: Former Smoker Tobacco Type: Amount or Packs/day: How Many Years: Alcohol Use: Yes Frequency: Monthly Quant: 1
--- NOTE | 2020-11-18 08:05 | HPC ---
[facility] [address] [place] [address] PAIN MANAGEMENT CONSULTATION Name: MILA HWANG Room #: REG [facility] M.R.#: [id number] Admission: 11/11/20 Attend Phys: Anahi Gunn Discharge: Date of : 63 Report #: [id number] THIS REPORT FOR: cc: Osito Baker MD, Todd MD Hocker,Anahi BLOOD ~ DOC #: [id number] cc: Marlen Silverman MD, MD Anahi Trevizo, [employer] FINISHING [employer]PERVISOR DATE OF SERVICE: 11/11/2020 CHIEF COMPLAINT: Psoriatic arthritis and chronic back pain. HISTORY OF PRESENT ILLNESS: This is a pleasant 55-year-old female who returns to the pain clinic today for renewal of her opioid medications. She reports her pain is worse in her low back, right hip and ankle as well as all of her joints due to her psoriatic arthritis. She describes this as a chronic aching tenderness. Today, rating her pain score 5/10. It is significantly worse with prolonged walking and standing and weather changes. Overall, she believes her medications are beneficial as well as heat and ice. She denies significant constipation or daytime somnolence as a result of her medication therapy. The patient does report she was hospitalized due to atrial fibrillation. She had had a history of this in the past and is not on any blood thinners as a result of this. While she was in the hospital, it was found that she was quite anemic with a hemoglobin of 6.6 per her report. She did have an EGD and was given iron and blood transfusions. Currently, her hemoglobin is 10.5. Per her report, she was found to have no bleeding that they were able to find, though she did have an ulcer. The patient reports that she is now on Protonix and they are continuing her on her Celebrex currently. She will have a followup with the GI specialist in about 4 weeks. ALLERGIES: PENICILLIN AND TETRACYCLINE. MEDICATIONS: Current list of medications Protonix, iron, vitamin C, B12, Cardizem, tizanidine, tramadol, morphine sulfate 15 mg b.i.d., hydrocodone 5/325 t.i.d. p.r.n., Lexapro, Fosamax, Celebrex and prednisone. PQRS: 1. She has a history of diffuse osteoarthritis as well as being treated for psoriatic arthritis. 2. Height is 5 feet 9 inches, weight is 196, BMI is 29. 3. Vital Signs: 146/82, pulse was 70, respirations 18, oxygen sat is 97%. 4. Pain score is 5/10. 5. Denies dizziness. Does not need help walking or standing. Has not fallen in the last [address] [address] PAIN MANAGEMENT CONSULTATION Name: MILA HWANG ANITA Room #: REG [facility]#: [id number] Admission: 11/11/20 Attend Phys: Anahi Gunn Discharge: Date of : 63 Report #: [id number] 6. Patient is not on any blood thinners, but does have a history of hypertension. 7. Opioid therapy is greater than 6 weeks, therefore an opioid signed contract is on the chart. Risk assessment is low. Functional assessment is 52/70. 8. Recreational drug use, she denies. She is not a smoker and occasionally drinks alcohol. According to the prescription monitoring system, her morphine milliequivalent is 50 MME or below. She is feeling in a timely fashion for all of her medications. There is an opioid urine drug screen on the chart that is appropriate for her medications. PHYSICAL EXAMINATION: General: This is alert and orientated well-developed, well-nourished 55-year-old female who appears her stated age, rating her pain score today at 5/10. She is a good historian. HEENT: Normocephalic, atraumatic. Extraocular eye muscles are intact. Mucous membranes are moist. She is wearing a face mask. Neck: Without adenopathy or JVD. Musculoskeletal: Her upper extremity strength is diminished. She has changes in her hands due to rheumatoid arthritis. She is without significant scoliosis, kyphosis, or lordosis. She has tenderness in her lumbosacral region that radiates into her hips and tenderness in her ankles, greater on the right than the left with some deformities due to arthritic changes in her feet as well. IMPRESSION: 1. Chronic arthritis, psoriatic as well as osteoarthritis. 2. Right ankle pain. 3. Low back pain. 4. Management of higher dose medications following opioid medications in agreement. 5. Recent atrial fibrillation, episode requiring hospitalization. 6. Ulcer. We reviewed the fact that opiate medications are being used to provide analgesia adequate to support activities of daily living, not attempting to achieve a specific pain score on the 0-10 Visual Analog Scale. The current opiate medications are providing sufficient analgesia to allow the patient to participate in activities of daily living. The patient is not exhibiting any aberrant behavior suggestive of drug diversion. The patient is not having any adverse reactions to medications. The patient is not suffering from daytime somnolence or mental acuity changes. The patient is managing opiate-induced constipation with appropriate pngq-ucl-stdaomy agents and dietary considerations. The patient was counseled on concern for caution with operating a motor vehicle while using opiate medications. [address] [address] PAIN MANAGEMENT CONSULTATION Name: MILA HWANG Room #: REG [facility].#: [id number] Admission: 11/11/20 Attend Phys: Anahi Gunn Discharge: Date of : 63 Report #: [id number] PLAN: 1. We discussed treatment options with the patient today. I cautioned the patient of taking Celebrex 400 mg total a day if she has had a recent ulcer and discussed this with her GI physician which she is following up with soon. 2. We will continue her on her morphine sulfate 15 mg b.i.d. Scripts will be sent today and again in 4 weeks as well as her hydrocodone 5/325, #90 for 2 months. The patient is not in need of tramadol. She takes this on as needed basis. No script sent today. We will continue her on her Zanaflex that she takes on as needed basis as well. Script sent for 60 tablets with 5 additional refills. This will last her several months to possibly a year due to her as needed usage. Time spent in the patient with consultation, in reviewing recent studies and clinical notes and physician reports, physical examination and correlation of physical findings is 20 minutes. Time spent in preparation for appointment, reviewing prescription monitoring system reports, reviewing previous records and proposed treatment options, reviewing current medications is 5 minutes. Time spent preparing and sending electronic prescriptions with collaborating physician, Dr. Spike Silverman documentation of visit and plan of treatment is 6 minutes. Total time spent 31 minutes. [facility] [place] <ELECTRONICALLY SIGNED> By: Anahi Gunn 11/18/20 0805 [id number] 11 Anahi Gunn /nt
== END ==
LOC: PAIN 08:31
PROVIDERS: ATTEND Clinical Nurse Specialist Adult Health
DX: M54.9 Dorsalgia, unspecified (principal); L40.52 Psoriatic arthritis mutilans; L98.499 Non-pressure chronic ulcer of skin of other sites with unspecified severity; I48.91 Unspecified atrial fibrillation; F11.20 Opioid dependence, uncomplicated; M25.571 Pain in right ankle and joints of right foot; Z88.8 Allergy status to other drugs, medicaments and biological substances; Z79.899 Other long term (current) drug therapy

== ENCOUNTER → 2021-01-01 | Outpatient (CLI) | payer OTHER ==
[~2021-01-01] VITALS: Ht 175.3 cm; Wt 91.1 kg
[2021-01-01 12:55] VITALS: BP 139/84
--- NOTE | 2021-01-01 13:28 | NUR ---
Pain Clinic Assessment: 1. History of Osteoarthritis: PSORIATIC all joint History of Rheumatoid Arthritis: psoriatic 2. Height: 5 ft. 9 in. 175.3 cm. Weight: 200.8 lb. oz. 91.082 kg. Patient's BMI: 29.6 3. Vital Signs: BP: 139/84 Pulse: 76 Resp: 14 Temp: 02 Sat: 98 ECG Mon: 4. Pain Intensity: 7 5. Fall Risk: Dizziness: N Needs help standing or walking: N Fallen in the last 3 months: N Fall risk comments: 6. Patient on Blood Thinner: None 7. History of Hypertension: Y 8. Opioid Therapy greater than 6 weeks: Y Opiate Contract Signed: 09/04/17 9. Risk Assessment Tool Provided: LOW RISK-0 10. Functional Assessment Tool: 11. Recreational Drug Use: Never Drug Type: Tobacco Use: Former Smoker Tobacco Type: Amount or Packs/day: How Many Years: Alcohol Use: Yes Frequency: Quant:
== END ==
LOC: PAIN 11:54
PROVIDERS: ATTEND Anesthesiology Pain Medicine
DX: M19.90 Unspecified osteoarthritis, unspecified site (principal); M25.571 Pain in right ankle and joints of right foot; Z79.891 Long term (current) use of opiate analgesic; Z86.16 Personal history of COVID-19; Z87.891 Personal history of nicotine dependence; Z79.899 Other long term (current) drug therapy; Z88.0 Allergy status to penicillin

== ENCOUNTER → 2021-02-26 | Outpatient (CLI) | payer OTHER ==
[~2021-02-26] VITALS: Ht 175.3 cm; Wt 90.0 kg
[~2021-02-26] MED LIST changes: +PREDNISONE 10 M10 MG PO
[2021-02-26 10:28] VITALS: BP 133/73
--- NOTE | 2021-02-26 10:39 | NUR ---
Pain Clinic Assessment: 1. History of Osteoarthritis: PSORIATIC all joint History of Rheumatoid Arthritis: psoriatic 2. Height: 5 ft. 9 in. 175.3 cm. Weight: 198.4 lb. oz. 89.994 kg. Patient's BMI: 29.3 3. Vital Signs: BP: 133/73 Pulse: 71 Resp: 14 Temp: 02 Sat: 98 ECG Mon: 4. Pain Intensity: 7 5. Fall Risk: Dizziness: N Needs help standing or walking: N Fallen in the last 3 months: N Fall risk comments: 6. Patient on Blood Thinner: None 7. History of Hypertension: Y 8. Opioid Therapy greater than 6 weeks: Y Opiate Contract Signed: 09/04/17 9. Risk Assessment Tool Provided: LOW RISK-0 10. Functional Assessment Tool: 11. Recreational Drug Use: Never Drug Type: Tobacco Use: Former Smoker Tobacco Type: Amount or Packs/day: How Many Years: Alcohol Use: Yes Frequency: Monthly Quant: 1-2
== END ==
LOC: PAIN 07:03
PROVIDERS: ATTEND Anesthesiology Pain Medicine
DX: L40.59 Other psoriatic arthropathy (principal); M25.571 Pain in right ankle and joints of right foot; M19.011 Primary osteoarthritis, right shoulder; M19.012 Primary osteoarthritis, left shoulder; Z86.16 Personal history of COVID-19; Z79.891 Long term (current) use of opiate analgesic; Z79.899 Other long term (current) drug therapy

== ENCOUNTER → 2021-04-21 | Outpatient (CLI) | payer OTHER ==
[~2021-04-21] VITALS: Ht 175.3 cm; Wt 88.5 kg
[2021-04-21 09:20] VITALS: BP 168/102
--- NOTE | 2021-04-21 09:26 | NUR ---
Pain Clinic Assessment: 1. History of Osteoarthritis: PSORIATIC all joint History of Rheumatoid Arthritis: psoriatic 2. Height: 5 ft. 9 in. 175.3 cm. Weight: 195.0 lb. oz. 88.452 kg. Patient's BMI: 28.8 3. Vital Signs: BP: 168/102 Pulse: 77 Resp: 14 Temp: 02 Sat: 99 ECG Mon: 4. Pain Intensity: 5 5. Fall Risk: Dizziness: N Needs help standing or walking: N Fallen in the last 3 months: N Fall risk comments: 6. Patient on Blood Thinner: None 7. History of Hypertension: Y 8. Opioid Therapy greater than 6 weeks: Y Opiate Contract Signed: 09/04/17 9. Risk Assessment Tool Provided: LOW RISK-0 10. Functional Assessment Tool: 11. Recreational Drug Use: Never Drug Type: Tobacco Use: Never Smoker Tobacco Type: Amount or Packs/day: How Many Years: Alcohol Use: Yes Frequency: Quant:
== END ==
LOC: PAIN 07:05
PROVIDERS: ATTEND Clinical Nurse Specialist Adult Health
DX: M06.872 Other specified rheumatoid arthritis, left ankle and foot (principal); M06.871 Other specified rheumatoid arthritis, right ankle and foot; M54.5 Low back pain; M19.011 Primary osteoarthritis, right shoulder; M19.012 Primary osteoarthritis, left shoulder; M19.072 Primary osteoarthritis, left ankle and foot; M19.071 Primary osteoarthritis, right ankle and foot; Z86.16 Personal history of COVID-19; Z79.899 Other long term (current) drug therapy; Z88.8 Allergy status to other drugs, medicaments and biological substances

== ENCOUNTER → 2021-05-26 | Outpatient (CLI) | payer OTHER ==
[~2021-05-26] VITALS: Ht 175.3 cm; Wt 93.0 kg
[2021-05-26 10:13] VITALS: BP 148/91; BP 164/103
== END ==
LOC: PAIN 07:11
PROVIDERS: ATTEND Clinical Nurse Specialist Adult Health
DX: M06.872 Other specified rheumatoid arthritis, left ankle and foot (principal); M06.871 Other specified rheumatoid arthritis, right ankle and foot; G89.29 Other chronic pain; I48.91 Unspecified atrial fibrillation; I10 Essential (primary) hypertension; Z88.8 Allergy status to other drugs, medicaments and biological substances; Z88.0 Allergy status to penicillin; Z79.899 Other long term (current) drug therapy

== ENCOUNTER → 2021-08-18 | Outpatient (CLI) | payer OTHER ==
[~2021-08-18] VITALS: Ht 175.3 cm; Wt 91.2 kg
[~2021-08-18] MED LIST changes: +ULTRAM 50MG TAB50 MG PO
[2021-08-18 10:56] VITALS: BP 157/106
--- NOTE | 2021-08-18 10:57 | NUR ---
Pain Clinic Assessment: 1. History of Osteoarthritis: PSORIATIC all joint History of Rheumatoid Arthritis: psoriatic 2. Height: 5 ft. 9 in. 175.3 cm. Weight: 201.0 lb. oz. 91.173 kg. Patient's BMI: 29.7 3. Vital Signs: BP: 157/106 Pulse: 81 Resp: 14 Temp: 02 Sat: 98 ECG Mon: 4. Pain Intensity: 6 good 5. Fall Risk: Dizziness: N Needs help standing or walking: N Fallen in the last 3 months: N Fall risk comments: 6. Patient on Blood Thinner: None 7. History of Hypertension: Y 8. Opioid Therapy greater than 6 weeks: Y Opiate Contract Signed: 09/04/17 9. Risk Assessment Tool Provided: LOW RISK-0 10. Functional Assessment Tool: 11. Recreational Drug Use: Never Drug Type: Tobacco Use: Never Smoker Tobacco Type: Amount or Packs/day: How Many Years: Alcohol Use: Yes Frequency: Quant:
== END ==
LOC: PAIN 09:16
PROVIDERS: ATTEND Clinical Nurse Specialist Adult Health
DX: M25.572 Pain in left ankle and joints of left foot (principal); M25.571 Pain in right ankle and joints of right foot; Z88.0 Allergy status to penicillin; Z88.8 Allergy status to other drugs, medicaments and biological substances; Z79.82 Long term (current) use of aspirin; Z79.899 Other long term (current) drug therapy